=== PATIENT | male | born 1935 | race Caucasian/White ===

== ENCOUNTER → 2016-11-18 | Outpatient (CLI) | payer OTHER ==
[~2016-11-18] MED LIST: AMLO2.5T PO; ASPI-435 PO; ATOR-54 PO; GLC500 PO; LSN/2025 PO; MISCTAB88 PO; MULT-506 PO
--- NOTE | 2016-11-18 10:32 | DIAGNOSTIC IMAGING REPORT ---
KUB HISTORY: N41.1 Chronic [id number] COMPARISON: None. FINDINGS: The bowel gas pattern is unremarkable. There are no dilated loops of small bowel to suggest an obstruction. There is a single 12 mm stone within the lower pole of the right kidney. There are 2 stones within the left kidney with the largest measuring 6 mm. No ureteral calculi. Calcifications in the deep pelvis likely represent phleboliths. No pneumoperitoneum or pneumatosis. IMPRESSION: Bilateral nephrolithiasis as described above. Electronically signed by: Lucho Strong M.D. 11/18/2016 10:31 AM
== END | disposition home or self-care (01) ==
LOC: C.RAD 09:53
PROVIDERS: ATTEND Urology
DX: N41.1 Chronic prostatitis (principal); N20.0 Calculus of kidney

== ENCOUNTER → 2017-01-12 | Outpatient (CLI) | payer OTHER | END | disposition home or self-care (01) | LOC: C.LABSPEC 10:30 | PROVIDERS: ATTEND Urology | DX: R39.198 Other difficulties with micturition (principal); R33.9 Retention of urine, unspecified; N41.1 Chronic prostatitis ==

== ENCOUNTER → 2017-01-21 | Outpatient (CLI) | payer OTHER | END | disposition home or self-care (01) | LOC: C.PATHSPEC 15:08 | PROVIDERS: ATTEND Urology | DX: R97.20 Elevated prostate specific antigen [PSA] (principal) ==

== ENCOUNTER 2017-10-26 21:30 | Inpatient (IN) | payer OTHER ==
[~2017-10-26] VITALS: Ht 185.4 cm; Wt 102.4 kg
[2017-10-27] VITALS (7 sets, daily range): BP systolic 96–117; BP diastolic 53–68; PULSE 99–114; TEMP 36.7–37.4; O2SAT 90–95; Ht 185.4 cm; Wt 102.4 kg
[2017-10-27] MEDS ORDERED: MAGNESIUM HYDROXIDE SUSP 30 ML UDC PO PRN (00:45)
[2017-10-27] MEDS ORDERED: NITROGLYCERIN 0.4 MG SL PER TAB CHARGE SL PRN (00:45)
[2017-10-27] MEDS ORDERED: ONDANSETRON INJ 2 MG/ML 2 ML VIAL IV PRN (00:45)
[2017-10-27] MEDS ORDERED: MoRPHine SULFATE 2 MG/ML CARP IV PRN (00:45)
[2017-10-27] MEDS ORDERED: ACETAMINOPHEN 325 MG TAB PO PRN (00:45)
[2017-10-27] MEDS ORDERED: ALUMINUM/MAGNESIUM/SIMETH (MAALOX MAX) 30 ML UDC PO PRN (00:45)
--- NOTE | 2017-10-27 01:01 | History and Physical ---
History & Physical Date & Time of Service: Oct 27, 2017 at 00:57 Chief Complaint: Urosepsis Primary Care Physician: Valdo Coles M.D. History of Present Illness Source: patient, clinic records, hospital records This is an 82 yo m with a h/o enlarged prostate requiring self cath, HTN, DMII that is presenting to us as a direct admission from [facility] for sepsis/ tachy. The patient came to the ED after having increasing lethargy/ weakness with cloudy urine. He was found to be tachycardic and Adenosine 6 mg was administered without improvement and then 12 mg which showed NSR with RBBB so no further intervention was given for tachycardia. He was given Rocephin 1 G for abnormal UA concerning for UTI as well as 2500 cc NSS bolus as Lactate was 8 on draw in their ED and 2.4 on redraw. The patient was tachycardic through the transfer however the patient has significant improvement in his symptoms. Continues to complain of some mild suprapubic pain which is non radiating and currently a 3/10. The patient denies any chest pain, SOB, fever/ chills, N&V at this time. Does take Trimethoprim 100 mg daily for UTI prophylaxis. Has an appointment with a Urologist in [facility] Past Medical/Surgical History HTN DMII Hyperlipid Enlarged prostate Family History No pertinent family history Social History Smoking Status: Never Smoker Smokeless Tobacco Use: No Alcohol Use: none Drug Use: none Marital Status: Housing status: lives with family Immunizations History of Influenza Vaccine: Unknown History of Tetanus Vaccine?: Unknown History of Pneumococcal: Unknown History of Hepatitis B Vaccine: Unknown Multi-Drug Resistant Organisms History of MDRO: No Allergies Coded Allergies: Iodinated Diagnostic Agents (Verified Allergy, Unknown, HIVE, 09/01/15) Home Medications Scheduled Amlodipine (Norvasc), 2.5 MG PO QAM Aspirin (Aspirin 81), 81 MG PO HS Atorvastatin (Lipitor), 20 MG PO HS Dutasteride (Avodart), 0.5 MG PO DAILY Hctz/Lisinopril (Lisinopril/Hctz 20/25 Mg), 1 TAB PO QAM Metformin HCl (Metformin HCl), 500 MG PO BID Misc Natural Products (Osteo Bi-Flex Triple Stre), 1 TAB PO BID Multivitamin (Multivitamin), 1 TAB PO QAM Miscellaneous Medications Cranberry (Vaccinium Macrocarp (Cranberry Fruit Concentra) Trimethoprim (Proloprim), 100 MG PO Review of Systems Constitutional: No fever, No chills, No sweats Eyes: No worsening of vision Respiratory: No cough, No sputum, No wheezing, No shortness of breath, No dyspnea on exertion, No dyspnea at rest Cardiovascular: No chest pain Abdomen: + pain, No nausea, No vomiting, No diarrhea, No constipation Musculoskeletal: No joint pain, No muscle pain Genitourinary - Male: + urinary retention, + problem reported (self cath ) Neurologic: No weakness, No balance problems Endocrine: No fatigue Hematologic / Lymphatic: No abnormal bleeding/bruising Integumentary: No rash Physical Exam Vital Signs Date Time Temp Pulse Resp B/P (MAP) Pulse Ox O2 Delivery O2 Flow Rate FiO2 10/27/17 00:03 36.9 107 19 117/68 General Appearance: no apparent distress Head: normocephalic, atraumatic Eyes: normal inspection ENT: normal ENT inspection Neck: supple Respiratory/Chest: normal breath sounds, no respiratory distress, no accessory muscle use Cardiovascular: no murmur, normal peripheral pulses, + tachycardia Abdomen/GI: normal bowel sounds, soft, + tenderness (suprapubic without rebound ) Back: normal inspection Extremities/Musculoskelatal: normal inspection, no calf tenderness, no pedal edema, normal range of motion Neurologic/Psych: alert, normal mood/affect, oriented x 3 Skin: normal color, warm/dry, no rash Lymphatic: no adenopathy Diagnostics Laboratory Results Results Past 24 Hours Test 10/27/17 00:38 Range/Units Diagnostic Radiology Apparent bilat pyelonephritis noted on the [facility] abd CT however no read was sent with documentation, will upload for assessment EKG HR 153 sinus tachy with RBBB no ectopy Impression Assessment and Plan This is an 82 yo m with a history of enlarged prostate and recurrent UTI after initiating self cath in February suffering from sepsis secondary to a urinary source Sepsis secondary to UTI/ pyelo in the presence of an enlarged prostate - Tele admission - NSS @ 125cc/h - Repeat labs from [facility] including CBC, CMP, lactate, magnesium, procal - Repeat UA and request culture results via HIM - Zosyn cont'd - Continue Dutasteride 0.5 mg daily - consider consult to ID for rec for prophylaxis DMII Metofrmin 500 mg bid held - insulin ISS with BSG ACHS HTN/ HLD - continue Amlodipine 2.5 mg - lisinopril HCTZ 20/25 held until recheck of Cr as patient had KYARA at [facility] according to documentation DVT prophylaxis - SCD Heparin bid Attending addendum: I have physically seen this patient, have supervised the medical residents activities, and agree with the H&P unless as otherwise noted. Assessment and Plan: UTI/sepsis/BPH with BA-- Zosyn IV NSS at 125 mls/hr Continue dutasteride Follow urine culture and sensitivity Consult urology, has been seen by Dr. Gutierrez in the past. Diabetes mellitus-- Hold metformin Place on Accu-Cheks before meals and at bedtime with NovoLog coverage per scale. Hypertension-- Continue amlodipine. Hold lisinopril/HCTZ Repeat BMP and magnesium levels Level of Care Telemetry Advanced Directives Existing Advance Directive: No Existing Living Will: No Existing Power of Cad Design Engineer: No Resuscitation Status FULL RESUSCITATION VTE Prophylaxis VTE Risk Assessment Done? Y/N: Yes Risk Level: Moderate Given or contraindicated: Unfractionated heparin SQ, SCD's Social Service Consult None Apply Note Total Time: Critical Care 30 - 74 minutes Additional Copies To Valdo Coles M.D.
[2017-10-27] MEDS: SODIUM CHLORIDE 0.9% 1000ML 1,000 ML IV SCH ×3 (01:05→17:13)
[2017-10-27 01:25] LABS: INR 1.2 (0.9-1.1); PARTIAL THROMBOPLASTIN RATIO 1.1; PROTHROMBIN TIME (PATIENT) 12.1 SECONDS (9.0-12.0)
[2017-10-27] MEDS ORDERED: DUTA0.5C PO (01:29)
[2017-10-27] MEDS ORDERED: CRAN1CAP8 (01:29)
[2017-10-27] MEDS ORDERED: TRIM100T PO (01:29)
[2017-10-27 01:34] LABS: BUN/CREATININE RATIO 16.1 (10-20); CALCIUM 7.6 mg/dl (8.5-10.1); CREATININE 2.34 mg/dl (0.60-1.40); MAGNESIUM 1.3 mg/dl (1.8-2.4); POTASSIUM 3.9 mmol/L (3.5-5.1)
[2017-10-27 01:42] LABS: ALB/GLOB RATIO 0.8 (0.9-2)
[2017-10-27] MEDS ORDERED: PIPERACILL/TAZOBAC IV 3.375 GM in DEXTROSE 5% 100ML IV ONE (01:45)
[2017-10-27 01:56] LABS: HEMATOCRIT 32.9 % (42-52); MEAN CELL VOLUME 89.6 fL (80-100); MEAN CORPUSCULAR HEMOGLOBIN 29.2 pg (25-34); MEAN CORPUSCULAR HGB CONC 32.5 g/dl (32-36); MEAN PLATELET VOLUME 9.1 fL (7.4-10.4); PLATELET COUNT 205 K/uL (130-400); RED BLOOD COUNT 3.67 M/uL (4.7-6.1); WHITE BLOOD COUNT 29.98 K/uL (4.8-10.8)
[2017-10-27 01:57] LABS: COMPLETE YES; ECHINOCYTES 1+; LYMPH ABS # 0.27 K/uL (1.2-3.4); LYMPHOCYTE % 0.9 %; META ABS # 3.63 K/uL (0-0); METAMYELOCYTE % 12.1 %; MYELOCYTE % 2.6 %; NEUTROPHILS % 84.4 %; VACUOLIZATION 1+
[2017-10-27] MEDS ORDERED: PIPERACILL/TAZOBAC CONSULT ACTIVE PRN (02:00)
[2017-10-27 02:16] LABS: URINE APPEARANCE TURBID (CLEAR); URINE COLOR DK YELLOW; URINE EPITHELIAL CELL AUTO >30 /lpf (0-5); URINE NITRITE POS (NEG); UROBILINOGEN NEG (NEG); ZZURINE CULT IF INDIC CATH YES
[2017-10-27 02:29] LABS: MANUAL MICROSCOPIC REQUIRED? NO; REVIEW REQ? YES; URINE BILIRUBIN 1+ (NEG)
[2017-10-27] MEDS: PIPERACILL/TAZOBAC IV 3.375 GM in DEXTROSE 5% 100ML 100 ML IV SCH ×3 (05:36→22:06)
[2017-10-27 06:59] LABS: BUN/CREATININE RATIO 16.6 (10-20); CALCIUM 7.7 mg/dl (8.5-10.1); CREATININE 2.42 mg/dl (0.60-1.40); HEMATOCRIT 32.6 % (42-52); MEAN CELL VOLUME 89.8 fL (80-100); MEAN CORPUSCULAR HEMOGLOBIN 29.2 pg (25-34); MEAN CORPUSCULAR HGB CONC 32.5 g/dl (32-36); MEAN PLATELET VOLUME 9.6 fL (7.4-10.4); PLATELET COUNT 215 K/uL (130-400); POTASSIUM 4.7 mmol/L (3.5-5.1); RED BLOOD COUNT 3.63 M/uL (4.7-6.1); WHITE BLOOD COUNT 40.18 K/uL (4.8-10.8)
[2017-10-27 07:00] LABS: BASO % 0.1 %; BASO ABS # 0.05 K/uL (0-0.2); COMPLETE YES; ECHINOCYTES 1+; IG% 1.3 %; LYMPH % 1.5 %; LYMPH ABS # 0.61 K/uL (1.2-3.4); MONO % 3.5 %; NEUT % 93.6 %
[2017-10-27] MEDS: MULTIVITAMIN TAB PO SCH (07:40)
[2017-10-27] MEDS: AMLODIPINE BESYLATE 5 MG TAB PO SCH (07:40)
[2017-10-27] MEDS: HEPARIN SOD 5000 UNIT/0.5 ML CARP SQ SCH ×2 (07:42→22:08)
[2017-10-27] MEDS: INSULIN ASPART 100 UNITS/ML 3 ML PEN SC SCH ×4 (07:42→21:00)
--- NOTE | 2017-10-27 07:59 | DIAGNOSTIC IMAGING REPORT ---
CHEST ONE VIEW PORTABLE CLINICAL HISTORY: 82 years-old Male presenting with sepsis. TECHNIQUE: Portable upright AP view of the chest was obtained. COMPARISON: None. FINDINGS: Atherosclerosis of aortic arch. Cardiac silhouette mildly enlarged allowing for AP technique. Elevation of the right hemidiaphragm with minimal right basilar opacity. Lungs and pleural spaces otherwise clear. Skin folds noted over the right lateral lung base. No convincing evidence of pneumothorax. Degenerative changes of the right glenohumeral joint. Upper abdomen normal. IMPRESSION: 1. Mild cardiomegaly. 2. Elevation of the right hemidiaphragm with right basilar atelectasis. No other convincing evidence of acute cardiopulmonary disease. Electronically signed by: Maksim Castillo M.D. 10/27/2017 7:57 AM Dictated Date/Time: 10/27/2017 7:56 AM
[2017-10-27] MEDS ORDERED: AVODART~ORDER AWAITING ACTION SCH (08:00)
[2017-10-27] MEDS ORDERED: NON-FORMULARY MEDICATION (Misc Natural Products (Osteo Bi-Flex Triple Stre) 1 TAB) PO SCH (09:00)
[2017-10-27] MEDS ORDERED: LISINOPRIL/HCTZ 20/25MG TAB PO SCH (09:00)
[2017-10-27] MEDS ORDERED: HydrALAZINE HCL 20 MG/ML VIAL IV. PRN (10:15)
[2017-10-27] MEDS: MAGNESIUM SULFATE 1GM / D5W 1 GM in PREMIXED IN D5W 100 ML IV SCH ×2 (10:55→12:05)
--- NOTE | 2017-10-27 11:02 | Medical Student: [facility] ---
Med Student Progress Note Date of Service Oct 27, 2017. Subjective Pt evaluation today including: conversation w/ patient, physical exam, chart review, lab review, review of studies, review of inpatient medication list Voiding: vasquez catheter in place 82 year old male with a history of BPH requiring self-catheterizations presenting to outside ED on 10/26 with one day history of fatigue, cloudy urine , and weakness. He was seen by his PCP earlier in the day and diagnosed with a UTI and given an unknown antibiotic which he took once. Symptoms continued to worsen leading to him calling an ambulance. He takes daily trimethoprim 100mg for UTI prophylaxis. He was tachycardic on arrival and given adenosine which caused NSR. He recieved fluid bolus, and IM Rocephin 1g. U/A showed obvious UTI. Chest x-ray was unremarkable. EKG showed NSR with RBBB. His lactate was 8 initially, but trended downward to 2.4. A CT at outside ED showed bilateral pyelonephritis. His troponin was elevated to 0.079 last night and trended down slightly to 0.074. Creatinine is 2.42 with a know previous creatinine of 1.8 last year. Today he says that he feels much better, and his weakness and fatigue have been resolving. He continues to have mild suprapubic pain. Urine is dark likely from Pyridium. He admitted to having dysuria and polyuria over the last few days. He has been started on IV Zosyn here. Review of Systems Constitutional: + chills, + sweats, + weakness, + fatigue, No fever ENT: + nasal symptoms Respiratory: + cough, No sputum, No wheezing, No shortness of breath Cardiac: No chest pain, No orthopnea, No edema Abdomen: + pain, No nausea, No vomiting, No diarrhea Male : + dysuria, + urinary frequency, + nocturia more than once/night, + hematuria All Other Systems: Reviewed and Negative Objective Vital Signs Date Time Temp Pulse Resp B/P (MAP) Pulse Ox O2 Delivery O2 Flow Rate FiO2 10/27/17 08:00 Room Air 10/27/17 07:30 37.2 114 20 109/61 (77) 93 Room Air 10/27/17 04:15 Nasal Cannula 2.0 10/27/17 03:27 36.9 99 20 96/53 (67) 95 Nasal Cannula 3.0 10/27/17 00:03 36.9 107 19 117/68 94 Room Air 10/27/17 00:00 Nasal Cannula 2.0 Physical Exam General Appearance: WD/WN, no apparent distress Eyes: bilateral eyes normal inspection, bilateral eyes EOMI ENT: hearing grossly normal, pharynx normal Neck: supple, no JVD, + pertinent finding (Erythema and flushing) Respiratory/Chest: chest non-tender, lungs clear, normal breath sounds, no respiratory distress, no accessory muscle use Cardiovascular: regular rate, rhythm, no edema, no gallop, no JVD, no murmur Abdomen: normal bowel sounds, soft, no organomegaly, no pulsatile mass, + tenderness (mi9ld suprapubic tenderness without guarding) Extremities: non-tender, normal inspection, no pedal edema, no calf tenderness Neurologic/Psychiatric: alert, normal mood/affect, oriented x 3 Skin: normal color, warm/dry, no rash Laboratory Results Last 24 Hours Test 10/27/17 00:00 10/27/17 01:02 10/27/17 05:58 10/27/17 07:38 Urine Color DK YELLOW Urine Appearance TURBID Urine pH 5.0 Urine Specific [place] 1.020 Urine Protein 3+ Urine Glucose (UA) NEG Urine Ketones NEG Urine Occult Blood 3+ Urine Nitrite POS Urine Bilirubin 1+ Urine Urobilinogen NEG Urine Leukocyte Esterase LARGE Urine WBC (Auto) >30 /hpf Urine RBC (Auto) >30 /hpf Urine Hyaline Casts (Auto) 0 /lpf Urine Epithelial Cells (Auto) >30 /lpf Urine Bacteria (Auto) NEG Urine Pathogenic Casts /lpf Urine Yeast (Auto) . White Blood Count 29.98 K/uL 40.18 K/uL Red Blood Count 3.67 M/uL 3.63 M/uL Hemoglobin 10.7 g/dL 10.6 g/dL Hematocrit 32.9 % 32.6 % Mean Corpuscular Volume 89.6 fL 89.8 fL Mean Corpuscular Hemoglobin 29.2 pg 29.2 pg Mean Corpuscular Hemoglobin Concent 32.5 g/dl 32.5 g/dl Platelet Count 205 K/uL 215 K/uL Mean Platelet Volume 9.1 fL 9.6 fL RDW Standard Deviation 49.5 fL 50.7 fL RDW Coefficient of Variation 15.2 % 15.4 % Nucleated RBC Absolute Count (auto) 0.03 K/uL Neutrophils % (Manual) 84.4 % Lymphocytes % (Manual) 0.9 % Metamyelocytes % 12.1 % Myelocytes % 2.6 % Nucleated Red Blood Cells % 0.1 % Neutrophils # (Manual) 25.30 K/uL Total Absolute Neutrophils 25.30 K/uL Lymphocytes # (Manual) 0.27 K/uL Total Absolute Lymphocytes 0.27 K/uL Metamyelocytes # 3.63 K/uL Myelocytes # 0.78 K/uL Toxic Vacuolation 1+ Echinocytes 1+ 1+ Prothrombin Time 12.1 SECONDS Prothromb Time International Ratio 1.2 Activated Partial Thromboplast Time 27.8 SECONDS Partial Thromboplastin Ratio 1.1 Sodium Level 138 mmol/L 137 mmol/L Potassium Level 3.9 mmol/L 4.7 mmol/L Chloride Level 110 mmol/L 109 mmol/L Carbon Dioxide Level 21 mmol/L 19 mmol/L Anion Gap 7.0 mmol/L 9.0 mmol/L Blood Urea Nitrogen 38 mg/dl 40 mg/dl Creatinine 2.34 mg/dl 2.42 mg/dl Est Creatinine Clear Calc Drug Dose 31.1 ml/min 30.1 ml/min Estimated GFR () 29.3 28.2 Estimated GFR (Non- 25.3 24.3 BUN/Creatinine Ratio 16.1 16.6 Random Glucose 143 mg/dl 172 mg/dl Lactic Acid Level 2.8 mmol/L 2.5 mmol/L Calcium Level 7.6 mg/dl 7.7 mg/dl Magnesium Level 1.3 mg/dl Total Bilirubin 0.4 mg/dl Aspartate Amino Transf (AST/SGOT) 88 U/L Alanine Aminotransferase (ALT/SGPT) 41 U/L Alkaline Phosphatase 56 U/L Troponin I 0.079 ng/ml 0.074 ng/ml Total Protein 5.8 gm/dl Albumin 2.6 gm/dl Globulin 3.2 gm/dl Albumin/Globulin Ratio 0.8 Procalcitonin 198.34 ng/ml Neutrophils (%) (Auto) 93.6 % Lymphocytes (%) (Auto) 1.5 % Monocytes (%) (Auto) 3.5 % Eosinophils (%) (Auto) 0.0 % Basophils (%) (Auto) 0.1 % Neutrophils # (Auto) 37.59 K/uL Lymphocytes # (Auto) 0.61 K/uL Monocytes # (Auto) 1.41 K/uL Eosinophils # (Auto) 0.00 K/uL Basophils # (Auto) 0.05 K/uL Immature Granulocyte % (Auto) 1.3 % Immature Granulocyte # (Auto) 0.52 K/uL Bedside Glucose 186 mg/dl Medications Current Inpatient Medications Medications (Trade) Dose Ordered Sig/Ambrose Route Start Time Stop Time Status Last Admin Dose Admin Heparin Sodium (Porcine) (Heparin Sq 5000 Unit/0.5ml) 5,000 unit Q12 SQ 10/27/17 09:00 11/26/17 08:59 10/27/17 07:42 5,000 UNIT Sodium Chloride 1,000 ml @ 125 mls/hr Q8H IV 10/27/17 01:30 11/26/17 01:29 10/27/17 09:05 125 MLS/HR Acetaminophen (Tylenol Tab) 650 mg Q4H PRN PO 10/27/17 00:45 11/26/17 00:44 Al Hydrox/Mg Hydrox/Simethicone (Maalox Max Susp) 15 ml Q4H PRN PO 10/27/17 00:45 11/26/17 00:44 Magnesium Hydroxide (Milk Of Magnesia Susp) 30 ml Q12H PRN PO 10/27/17 00:45 11/26/17 00:44 Ondansetron HCl (Zofran Inj) 4 mg Q6H PRN IV 10/27/17 00:45 11/26/17 00:44 Nitroglycerin (Nitrostat Tab) 0.4 mg UD PRN SL 10/27/17 00:45 11/26/17 00:44 Morphine Sulfate (MoRPHine SULFATE INJ) 2 mg Q30M PRN IV 10/27/17 00:45 11/10/17 00:44 Metoprolol Tartrate (Lopressor Iv) 5 mg Q6 PRN IV 10/27/17 00:45 11/26/17 00:44 Amlodipine Besylate (Norvasc Tab) 2.5 mg QAM PO 10/27/17 09:00 11/26/17 08:59 10/27/17 07:40 2.5 MG Aspirin (Ecotrin Tab) 81 mg HS PO 10/27/17 21:00 1/13/18 20:59 Atorvastatin Calcium (Lipitor Tab) 20 mg HS PO 10/27/17 21:00 11/26/17 20:59 HCTZ/Lisinopril (Prinzide 20-25MG Tab) 1 tab QAM PO 10/27/17 09:00 11/26/17 08:59 10/27/17 07:40 1 TAB Multivitamins (Multivitamin Tab) 1 tab QAM PO 10/27/17 09:00 11/26/17 08:59 10/27/17 07:40 1 TAB Miscellaneous Information (Order Awaiting Action) 1 ea QS N/A 10/27/17 08:00 11/26/17 07:59 Piperacillin Sod/ Tazobactam Sod 3.375 gm/Dextrose 115 ml @ 28.75 mls/ hr Q8H IV 10/27/17 06:00 11/06/17 05:59 10/27/17 05:36 28.75 MLS/HR Insulin Aspart (novoLOG ASPART) SLIDING SCALE G... ACHS SC 10/27/17 07:00 11/26/17 06:59 10/27/17 07:42 2 UNITS Piperacillin Sod/ Tazobactam Sod (Consult) 1 ea UD PRN N/A 10/27/17 02:00 11/26/17 01:59 Assessment and Plan Assessment and Plan: Problem List: 1. UTI 2. Pyelonephritis 3. Sepsis 4. BPH 5. T2DM 6. HTN 7. Elevated creatinine 8. Elevated troponin Assessment: 82 year old male with BPH requiring self-catheterization presenting with urosepsis. He is now hemodynamically stable and improving weakness. Plan: 1. Urosepsis: Grossly positive U/A and pyelonephritis on CT. WBC of 40. Lactate has trended downward, mildly tachycardic, afebrile. Day 1 of 3.375gm IV Zosyn q8h. Symptoms of polyuria and dysuria improving. On telemetry. 2. T2DM: Well controlled BG, check q4h. SSI. 3. HTN: Well controlled BP, continue home Norvasc 2.5mg daily. 4. DVT prophylaxis: Heparin 5000 units SQ q12h 5. Elevated troponin: Trending downward, likely from demand ischemia. EKG shows no acute changes. 6. Elevated creatinine: likely due to renal involvement of UTI, continue to monitor BMP q12h. Disposition: Will monitor on telemetry, continue IV zosyn, awaiting urine cultures. Continued [facility] stay due to: abnormal vital signs, multiple IV medications needed Discharge planning: uncertain
--- NOTE | 2017-10-27 11:36 | Hospitalist Progress Note ---
Hospitalist Progress Note Date of Service Oct 27, 2017. (Darcie Nye ., THOMASC) Subjective Pt evaluation today including: conversation w/ patient, physical exam, chart review, lab review, review of studies, review of inpatient medication list Voiding: vasquez catheter in place (draining dark pascual urine ) Patient resting in bed. Notes significant improvement in symptoms since admission. Eating and drinking OK. +chills yesterday, denies any today. +diffuse body weakness. Patient denies any fever, sweats, lightheadedness, dizziness, vision changes, CP , palpitations, edema, SOB, wheezing, cough, abdominal pain, nausea, vomiting, diarrhea, melena, numbness/tingling, muscle/joint pain, anxiety/depression, active bleeding, or new skin discoloration/changes. (Darcie Nye ., ENRIQUE-C) Medications Current Inpatient Medications Medications (Trade) Dose Ordered Sig/Ambrose Route Start Time Stop Time Status Last Admin Dose Admin Heparin Sodium (Porcine) (Heparin Sq 5000 Unit/0.5ml) 5,000 unit Q12 SQ 10/27/17 09:00 11/26/17 08:59 10/27/17 07:42 5,000 UNIT Sodium Chloride 1,000 ml @ 125 mls/hr Q8H IV 10/27/17 01:30 11/26/17 01:29 10/27/17 09:05 125 MLS/HR Acetaminophen (Tylenol Tab) 650 mg Q4H PRN PO 10/27/17 00:45 11/26/17 00:44 Al Hydrox/Mg Hydrox/Simethicone (Maalox Max Susp) 15 ml Q4H PRN PO 10/27/17 00:45 11/26/17 00:44 Magnesium Hydroxide (Milk Of Magnesia Susp) 30 ml Q12H PRN PO 10/27/17 00:45 11/26/17 00:44 Ondansetron HCl (Zofran Inj) 4 mg Q6H PRN IV 10/27/17 00:45 11/26/17 00:44 Nitroglycerin (Nitrostat Tab) 0.4 mg UD PRN SL 10/27/17 00:45 11/26/17 00:44 Morphine Sulfate (MoRPHine SULFATE INJ) 2 mg Q30M PRN IV 10/27/17 00:45 11/10/17 00:44 Metoprolol Tartrate (Lopressor Iv) 5 mg Q6 PRN IV 10/27/17 00:45 11/26/17 00:44 Amlodipine Besylate (Norvasc Tab) 2.5 mg QAM PO 10/27/17 09:00 11/26/17 08:59 10/27/17 07:40 2.5 MG Aspirin (Ecotrin Tab) 81 mg HS PO 10/27/17 21:00 11/26/17 20:59 Atorvastatin Calcium (Lipitor Tab) 20 mg HS PO 10/27/17 21:00 11/26/17 20:59 Multivitamins (Multivitamin Tab) 1 tab QAM PO 10/27/17 09:00 11/26/17 08:59 10/27/17 07:40 1 TAB Miscellaneous Information (Order Awaiting Action) 1 ea QS N/A 10/27/17 08:00 11/26/17 07:59 Piperacillin Sod/ Tazobactam Sod 3.375 gm/Dextrose 115 ml @ 28.75 mls/ hr Q8H IV 10/27/17 06:00 11/06/17 05:59 10/27/17 05:36 28.75 MLS/HR Insulin Aspart (novoLOG ASPART) SLIDING SCALE G... ACHS SC 10/27/17 07:00 11/26/17 06:59 10/27/17 07:42 2 UNITS Piperacillin Sod/ Tazobactam Sod (Consult) 1 ea UD PRN N/A 10/27/17 02:00 11/26/17 01:59 Magnesium Sulfate 1 gm/Prmx 100 ml @ 100 mls/hr Q1H IV 10/27/17 10:30 10/27/17 12:29 10/27/17 10:55 100 MLS/HR Hydralazine HCl (HydrALAZINE INJ) 10 mg Q6H PRN IV. 10/27/17 10:15 11/26/17 10:14 (Darcie Nye, EDDIE) Objective Vital Signs Date Time Temp Pulse Resp B/P (MAP) Pulse Ox O2 Delivery O2 Flow Rate FiO2 10/27/17 08:00 Room Air 10/27/17 07:30 37.2 114 20 109/61 (77) 93 Room Air 10/27/17 04:15 Nasal Cannula 2.0 10/27/17 03:27 36.9 99 20 96/53 (67) 95 Nasal Cannula 3.0 10/27/17 00:03 36.9 107 19 117/68 94 Room Air 10/27/17 00:00 Nasal Cannula 2.0 (Darcie Nye ., PA-C) Physical Exam General Appearance: no apparent distress Eyes: normal inspection, PERRL ENT: hearing grossly normal Neck: supple Respiratory/Chest: lungs clear, no respiratory distress, no accessory muscle use Cardiovascular: + tachycardia (regular rhythm ) Abdomen: normal bowel sounds, non tender, soft Extremities: no pedal edema, no calf tenderness Neurologic/Psychiatric: alert, normal mood/affect, oriented x 3 Skin: normal color, warm/dry, no rash (Darcie Nye ., PA-C) Laboratory Results Last 24 Hours Test 10/27/17 00:00 10/27/17 01:02 10/27/17 05:58 10/27/17 07:38 Urine Color DK YELLOW Urine Appearance TURBID Urine pH 5.0 Urine Specific [place] 1.020 Urine Protein 3+ Urine Glucose (UA) NEG Urine Ketones NEG Urine Occult Blood 3+ Urine Nitrite POS Urine Bilirubin 1+ Urine Urobilinogen NEG Urine Leukocyte Esterase LARGE Urine WBC (Auto) >30 /hpf Urine RBC (Auto) >30 /hpf Urine Hyaline Casts (Auto) 0 /lpf Urine Epithelial Cells (Auto) >30 /lpf Urine Bacteria (Auto) NEG Urine Pathogenic Casts /lpf Urine Yeast (Auto) . White Blood Count 29.98 K/uL 40.18 K/uL Red Blood Count 3.67 M/uL 3.63 M/uL Hemoglobin 10.7 g/dL 10.6 g/dL Hematocrit 32.9 % 32.6 % Mean Corpuscular Volume 89.6 fL 89.8 fL Mean Corpuscular Hemoglobin 29.2 pg 29.2 pg Mean Corpuscular Hemoglobin Concent 32.5 g/dl 32.5 g/dl Platelet Count 205 K/uL 215 K/uL Mean Platelet Volume 9.1 fL 9.6 fL RDW Standard Deviation 49.5 fL 50.7 fL RDW Coefficient of Variation 15.2 % 15.4 % Nucleated RBC Absolute Count (auto) 0.03 K/uL Neutrophils % (Manual) 84.4 % Lymphocytes % (Manual) 0.9 % Metamyelocytes % 12.1 % Myelocytes % 2.6 % Nucleated Red Blood Cells % 0.1 % Neutrophils # (Manual) 25.30 K/uL Total Absolute Neutrophils 25.30 K/uL Lymphocytes # (Manual) 0.27 K/uL Total Absolute Lymphocytes 0.27 K/uL Metamyelocytes # 3.63 K/uL Myelocytes # 0.78 K/uL Toxic Vacuolation 1+ Echinocytes 1+ 1+ Prothrombin Time 12.1 SECONDS Prothromb Time International Ratio 1.2 Activated Partial Thromboplast Time 27.8 SECONDS Partial Thromboplastin Ratio 1.1 Sodium Level 138 mmol/L 137 mmol/L Potassium Level 3.9 mmol/L 4.7 mmol/L Chloride Level 110 mmol/L 109 mmol/L Carbon Dioxide Level 21 mmol/L 19 mmol/L Anion Gap 7.0 mmol/L 9.0 mmol/L Blood Urea Nitrogen 38 mg/dl 40 mg/dl Creatinine 2.34 mg/dl 2.42 mg/dl Est Creatinine Clear Calc Drug Dose 31.1 ml/min 30.1 ml/min Estimated GFR () 29.3 28.2 Estimated GFR (Non- 25.3 24.3 BUN/Creatinine Ratio 16.1 16.6 Random Glucose 143 mg/dl 172 mg/dl Lactic Acid Level 2.8 mmol/L 2.5 mmol/L Calcium Level 7.6 mg/dl 7.7 mg/dl Magnesium Level 1.3 mg/dl Total Bilirubin 0.4 mg/dl Aspartate Amino Transf (AST/SGOT) 88 U/L Alanine Aminotransferase (ALT/SGPT) 41 U/L Alkaline Phosphatase 56 U/L Troponin I 0.079 ng/ml 0.074 ng/ml Total Protein 5.8 gm/dl Albumin 2.6 gm/dl Globulin 3.2 gm/dl Albumin/Globulin Ratio 0.8 Procalcitonin 198.34 ng/ml Neutrophils (%) (Auto) 93.6 % Lymphocytes (%) (Auto) 1.5 % Monocytes (%) (Auto) 3.5 % Eosinophils (%) (Auto) 0.0 % Basophils (%) (Auto) 0.1 % Neutrophils # (Auto) 37.59 K/uL Lymphocytes # (Auto) 0.61 K/uL Monocytes # (Auto) 1.41 K/uL Eosinophils # (Auto) 0.00 K/uL Basophils # (Auto) 0.05 K/uL Immature Granulocyte % (Auto) 1.3 % Immature Granulocyte # (Auto) 0.52 K/uL Bedside Glucose 186 mg/dl (Darcie Nye ., PA-C) Assessment and Plan This is an 82 y/o male with a history of enlarged prostate and recurrent UTI after initiating self cath in February suffering from sepsis secondary to a urinary source Sepsis, likely secondary to UTI, h/o BPH: - Admitted to tele for cardiac monitoring - NSS @ 125cc/h - UCx and BCx pending - IV Zosyn - Continue Dutasteride 0.5 mg daily - Follow CBC Hypomagnesium at 1.3: Replace w/ IV 1 gm Mag x2, follow mag level and replace PRN T2DM: - Metformin 500 mg BID held - BSH ACHS and ISS CKD- unsure of baseline Cr: - Per record in 2015, Cr. 1.8k; Cr. 2.42 today from 2.34 yesterday - Hold HCTZ/Lisinopril - Follow PRP HTN: - Continue Amlodipine 2.5 mg - Hold HCTZ/Lisinopril as above - Hydralazine 10 mg IV q6 hrs PRN for sbp >180 or dbp >100 HLD: Lipitor 20 mg HS DVT prophylaxis: Heparin SQ BID Code Status: LEVEL I, FULL Dispo: Discharge uncertain at this time- will consult PT/OT once status improves (Darcie Nye ., PA-C) I agree with PA assessment and plan and have seen and examined pt myself Resting comfortably in bed States he is feeling better VSS Labs reviewed, marked leukocytosis Hx of BPH Cont broad spectrum antibx at this time Lactate improving Mildly elev trops Cont to monitor on tele (Oumar Del Rosario D.O.)
[2017-10-27] MEDS: ASPIRIN 81 MG ECTAB PO SCH (22:06)
[2017-10-27] MEDS: ATORVASTATIN 20 MG TAB PO SCH (22:06)
[2017-10-28] VITALS (9 sets, daily range): BP systolic 99–144; BP diastolic 64–79; PULSE 86–119; TEMP 36.8–37.2; O2SAT 91–93
[2017-10-28] MEDS: SODIUM CHLORIDE 0.9% 1000ML 1,000 ML IV SCH ×4 (05:17→23:27)
[2017-10-28] MEDS: PIPERACILL/TAZOBAC IV 3.375 GM in DEXTROSE 5% 100ML 100 ML IV SCH ×3 (05:37→21:55)
[2017-10-28 06:19] LABS: HEMATOCRIT 31.7 % (42-52); MEAN CORPUSCULAR HEMOGLOBIN 29.2 pg (25-34); MEAN CORPUSCULAR HGB CONC 32.8 g/dl (32-36); MEAN PLATELET VOLUME 9.4 fL (7.4-10.4); PLATELET COUNT 198 K/uL (130-400); RED BLOOD COUNT 3.56 M/uL (4.7-6.1)
[2017-10-28 06:47] LABS: BUN/CREATININE RATIO 20.2 (10-20); CALCIUM 7.5 mg/dl (8.5-10.1); CREATININE 1.63 mg/dl (0.60-1.40); POTASSIUM 4.2 mmol/L (3.5-5.1)
[2017-10-28] MEDS: INSULIN ASPART 100 UNITS/ML 3 ML PEN SC SCH ×4 (07:00→20:39)
[2017-10-28] MEDS: MULTIVITAMIN TAB PO SCH (07:39)
[2017-10-28] MEDS: AMLODIPINE BESYLATE 5 MG TAB PO SCH (07:40)
[2017-10-28] MEDS: DUTASTERIDE 0.5MG PO SCH ×2 (07:41)
[2017-10-28] MEDS: HEPARIN SOD 5000 UNIT/0.5 ML CARP SQ SCH (07:42)
[2017-10-28] MEDS: METOPROLOL TARTRATE 1 MG/ML VIAL IV PRN ×2 (08:06→19:30)
--- NOTE | 2017-10-28 08:47 | Medical Student: [facility] ---
Med Student Progress Note Date of Service Oct 28, 2017. Subjective Pt evaluation today including: conversation w/ patient, physical exam, chart review, lab review, review of studies, review of inpatient medication list Voiding: vasquez catheter in place 82 year old male with a history of BPH requiring self-catheterizations presenting to outside ED on 10/26 with one day history of fatigue, cloudy urine , and weakness. CT at ED showed bilateral pyelonephritis. Diagnosed with urosepsis. Creatinine was 2.42 on arrival, now 1.63 showing improvement of what was likely prerenal KYARA. Today he says that he feels much better, and his weakness and fatigue have been resolving. Did not sleep well through the night. Denies fevers, chills, but has felt hot. He continues to have mild suprapubic pain. Urine is clear. He admitted to having dysuria and polyuria over the last few days, but that has resolved. He has been started on IV Zosyn. Continues to be tachycardic into the 110's. Complains of sinus congestion. Review of Systems Constitutional: + sweats, + weakness, + fatigue, No fever, No chills Respiratory: + cough, No sputum, No wheezing, No shortness of breath Cardiac: No chest pain, No orthopnea, No edema, No palpitations Abdomen: No pain, No nausea, No vomiting, No diarrhea, No constipation Male : No dysuria, No urinary frequency, No incontinence All Other Systems: Reviewed and Negative Objective Vital Signs Date Time Temp Pulse Resp B/P (MAP) Pulse Ox O2 Delivery O2 Flow Rate FiO2 10/28/17 08:06 162 130/70 10/28/17 07:55 37.2 91 16 130/75 (93) 91 Room Air 10/28/17 04:00 Room Air 10/28/17 03:13 36.8 111 18 99/66 (77) 92 Room Air 10/28/17 00:01 Room Air 10/27/17 23:40 36.7 108 18 109/64 (79) 94 Room Air 10/27/17 20:00 Room Air 10/27/17 19:31 36.8 110 20 99/59 (72) 90 Room Air 10/27/17 16:01 37.3 106 18 104/60 (75) 91 Room Air 10/27/17 16:00 Room Air 10/27/17 12:00 Room Air 10/27/17 11:25 37.4 111 20 99/63 (75) 92 Room Air Physical Exam General Appearance: no apparent distress, + obese Eyes: bilateral eyes normal inspection, bilateral eyes EOMI ENT: hearing grossly normal, pharynx normal, + nasal drainage Neck: supple, no JVD Respiratory/Chest: chest non-tender, lungs clear, normal breath sounds, no respiratory distress, no accessory muscle use Cardiovascular: no edema, no gallop, no JVD, no murmur, + tachycardia Abdomen: normal bowel sounds, soft, no organomegaly, no pulsatile mass, + tenderness (mild suprapubic tenderness) Extremities: non-tender, normal inspection, no pedal edema, no calf tenderness Neurologic/Psychiatric: alert, normal mood/affect, oriented x 3 Skin: normal color, no rash, + diaphoresis Laboratory Results Last 24 Hours Test 10/27/17 11:24 10/27/17 16:28 10/27/17 21:08 10/28/17 05:38 Bedside Glucose 176 mg/dl 108 mg/dl 114 mg/dl White Blood Count 34.20 K/uL Red Blood Count 3.56 M/uL Hemoglobin 10.4 g/dL Hematocrit 31.7 % Mean Corpuscular Volume 89.0 fL Mean Corpuscular Hemoglobin 29.2 pg Mean Corpuscular Hemoglobin Concent 32.8 g/dl RDW Standard Deviation 50.7 fL RDW Coefficient of Variation 15.6 % Platelet Count 198 K/uL Mean Platelet Volume 9.4 fL Sodium Level 135 mmol/L Potassium Level 4.2 mmol/L Chloride Level 108 mmol/L Carbon Dioxide Level 21 mmol/L Anion Gap 6.0 mmol/L Blood Urea Nitrogen 33 mg/dl Creatinine 1.63 mg/dl Est Creatinine Clear Calc Drug Dose 44.7 ml/min Estimated GFR () 45.4 Estimated GFR (Non- 39.2 BUN/Creatinine Ratio 20.2 Random Glucose 78 mg/dl Calcium Level 7.5 mg/dl Magnesium Level 2.0 mg/dl Test 10/28/17 06:39 Bedside Glucose 87 mg/dl Medications Current Inpatient Medications Medications (Trade) Dose Ordered Sig/Ambrose Route Start Time Stop Time Status Last Admin Dose Admin Heparin Sodium (Porcine) (Heparin Sq 5000 Unit/0.5ml) 5,000 unit Q12 SQ 10/27/17 09:00 11/26/17 08:59 10/28/17 07:42 5,000 UNIT Sodium Chloride 1,000 ml @ 125 mls/hr Q8H IV 10/27/17 01:30 11/26/17 01:29 10/28/17 07:43 125 MLS/HR Acetaminophen (Tylenol Tab) 650 mg Q4H PRN PO 10/27/17 00:45 11/26/17 00:44 Al Hydrox/Mg Hydrox/Simethicone (Maalox Max Susp) 15 ml Q4H PRN PO 10/27/17 00:45 11/26/17 00:44 Magnesium Hydroxide (Milk Of Magnesia Susp) 30 ml Q12H PRN PO 10/27/17 00:45 11/26/17 00:44 Ondansetron HCl (Zofran Inj) 4 mg Q6H PRN IV 10/27/17 00:45 11/26/17 00:44 Nitroglycerin (Nitrostat Tab) 0.4 mg UD PRN SL 10/27/17 00:45 11/26/17 00:44 Morphine Sulfate (MoRPHine SULFATE INJ) 2 mg Q30M PRN IV 10/27/17 00:45 11/10/17 00:44 Metoprolol Tartrate (Lopressor Iv) 5 mg Q6 PRN IV 10/27/17 00:45 11/26/17 00:44 10/28/17 08:06 5 MG Amlodipine Besylate (Norvasc Tab) 2.5 mg QAM PO 10/27/17 09:00 11/26/17 08:59 10/28/17 07:40 2.5 MG Aspirin (Ecotrin Tab) 81 mg HS PO 10/27/17 21:00 11/26/17 20:59 10/27/17 22:06 81 MG Atorvastatin Calcium (Lipitor Tab) 20 mg HS PO 10/27/17 21:00 11/26/17 20:59 10/27/17 22:06 20 MG Multivitamins (Multivitamin Tab) 1 tab QAM PO 10/27/17 09:00 11/26/17 08:59 10/28/17 07:39 1 TAB Piperacillin Sod/ Tazobactam Sod 3.375 gm/Dextrose 115 ml @ 28.75 mls/ hr Q8H IV 10/27/17 06:00 11/06/17 05:59 10/28/17 05:37 28.75 MLS/HR Insulin Aspart (novoLOG ASPART) SLIDING SCALE G... ACHS SC 10/27/17 07:00 11/26/17 06:59 10/27/17 12:06 1 UNITS Piperacillin Sod/ Tazobactam Sod (Consult) 1 ea UD PRN N/A 10/27/17 02:00 11/26/17 01:59 Hydralazine HCl (HydrALAZINE INJ) 10 mg Q6H PRN IV. 10/27/17 10:15 11/26/17 10:14 Dutasteride (Avodart) 0.5 mg DAILY PO 10/28/17 09:00 11/27/17 08:59 10/28/17 07:41 0.5 MG Assessment and Plan Assessment and Plan: Problem List: 1. UTI 2. Pyelonephritis 3. Sepsis 4. BPH 5. T2DM 6. HTN 7. Elevated creatinine 8. Elevated troponin Assessment: 82 year old male with BPH requiring self-catheterization presenting with urosepsis. He is now hemodynamically stable and improving weakness. Plan: 1. Urosepsis: Grossly positive U/A and pyelonephritis on CT. WBC of 34, improved slightly. Lactate has trended downward, mildly tachycardic, afebrile. Day 2 of 3.375gm IV Zosyn q8h. Symptoms of polyuria and dysuria improving. On telemetry. Check CBC q24. NSS 1000mL q8hr. 2. T2DM: Well controlled BG, check q4h. SSI. 3. HTN: Well controlled BP, 99/66, continue home Norvasc 2.5mg daily. Hold home HCTZ/Lisinopril due to renal function and normotension. 4. DVT prophylaxis: Heparin 5000 units SQ q12h 5. Elevated troponin: Trending downward, likely from demand ischemia. EKG shows no acute changes. 6. Elevated creatinine: likely due to renal involvement of UTI, improved from 2.3 to 1.6 over the last day while receiving IV fluids. Continue to monitor BMP q12h. 7. Sinus congestion: will give guaifenesin, and nasal saline. Disposition: Will monitor on telemetry, continue IV zosyn, awaiting urine cultures. Continued [facility] stay due to: abnormal vital signs, multiple IV medications needed Discharge planning: uncertain
[2017-10-28] MEDS ORDERED: METOPROLOL TARTRATE 1 MG/ML VIAL IV ONE (09:30)
--- NOTE | 2017-10-28 09:48 | Clinical Documentation Query ---
CLINICAL DOCUMENTATION QUERY QUERY 1 OF 2 In your clinical opinion is this patient being managed for: ( X ) Chronic kidney disease, stage 3 - 4 ( ) Not Agree ( ) Other explanation of clinical findings (Please Explain) ( ) Unable to determine (Please Define) ( ) Need to Discuss The medical record reflects the following clinical findings, treatment, and risk factors. Clinical Indicators: GFR range 24.3 to 39.2 from baseline of 35.0 on 11/02/2016 Treatment: IV hydration, telemetry, serial PRPs Risk Factors: HTN, sepsis, UTI, HTN, DM QUERY 2 OF 2 An 82 yo m with a history of enlarged prostate and recurrent UTI after initiating self cath in February suffering from sepsis secondary to a urinary source. In your clinical opinion is this patient being managed for: (X ) Acute kidney failure ( ) Not Agree ( ) Other explanation of clinical findings (Please Explain) ( ) Unable to determine (Please Define) ( ) Need to Discuss The medical record reflects the following clinical findings, treatment, and risk factors. Clinical Indicators: Creatinine 2.34 from baseline 1.80 on 11/02/2016 Treatment: IV hydration, telemetry, serial PRPs Risk Factors: Age, sepsis, UTI, HTN, CKD, DM Please clarify and document your clinical opinion in the progress notes and discharge summary. Terms such as "probable", "suspected", "likely", "questionable", "possible", or "still to be ruled out" are acceptable. IF IN AGREEMENT, YOU MUST DOCUMENT ABOVE DIAGNOSTIC STATEMENT IN DAILY PROGRESS NOTES AND DISCHARGE SUMMARY. This document is not part of the patient's record. Thank You, Rosita Sanchez RN [phone]
--- NOTE | 2017-10-28 11:49 | Cardiology Consultation ---
Cardiology Consultation Date of Consultation: Oct 28, 2017. Requesting Physician: Darcie Nye PA-C Attending Physician: Dr. El Reason for Consultation: New onset atrial fibrillation with RVR Pt evaluation today including: conversation w/ patient, conversation w/ family , physical exam, chart review, lab review, review of studies, review of inpatient medication list, conversation w/ attending History of Present Illness Mr. Shaikh is an 82-year-old male with a past medical history significant for hypertension, dyslipidemia, type 2 diabetes mellitus, and BPH requiring self catheterization who is being seen in consultation regarding now onset atrial fibrillation with RVR. The patient reports that he was seen in his PCP's office on Tuesday morning and was diagnosed with a UTI at that time. Later that day, he developed chills, weakness, and confusion. He presented to the ED at [facility] and was diagnosed with urosepsis. He was tachycardic on arrival and was reportedly given Adenosine 6 mg followed by 12 mg. He was subsequently transferred to [facility] due to the urosepsis and tachycardia. EKG on arrival showed sinus tachycardia at 104 bpm. He was placed on telemetry monitoring and was in sinus tachycardia with short runs of junctional tachycardia overnight. This morning at about 7: 33 am, he developed new onset atrial fibrillation with RVR up to the 180s. He has been treated with 2 doses IV lopressor 5 mg, and his rate is currently averaging 120-130s. He is currently being seen in his room at 235. He reports that he is asymptomatic with the arrhythmia. He denies palpitations, chest pain, shortness of breath, lightheadedness, or presyncope. He denies orthopnea, PND, or edema. He notes occasional blood in his urine due to trauma from the self- catheterization, but he denies any hematuria currently. He denies melena or hematochezia. He denies nausea, vomiting, diarrhea, or abdominal pain. He admits to a cough with some yellow phlegm production. He denies wheezing. He denies neurologic symptoms. Review of systems: As noted in HPI. All other 10 point ROS reviewed and otherwise negative. Past Medical/Surgical History Surgical history: 1. S/P Cataract surgery 2. S/P Vasectomy 3. S/P Cyst removal Family History No pertinent family history His father was diagnosed with CAD in his 40s. His mother was diagnosed with CAD in her mid 60s. Social History Smoking Status: Never Smoker History of Alcohol Use: No He is . He has 2 children and 5 grandchildren. He was never a smoker. He denies alcohol or illicit drug use. Review of Systems Respiratory: + cough, No sputum, No wheezing, No shortness of breath Cardiac: No chest pain, No orthopnea, No edema, No palpitations Allergies Coded Allergies: Iodinated Diagnostic Agents (Verified Allergy, Unknown, HIVE, 09/01/15) Medications Current Inpatient Medications Medications (Trade) Dose Ordered Sig/Ambrose Route Start Time Stop Time Status Last Admin Dose Admin Heparin Sodium (Porcine) (Heparin Sq 5000 Unit/0.5ml) 5,000 unit Q12 SQ 10/27/17 09:00 11/26/17 08:59 10/28/17 07:42 5,000 UNIT Sodium Chloride 1,000 ml @ 125 mls/hr Q8H IV 10/27/17 01:30 11/26/17 01:29 10/28/17 07:43 125 MLS/HR Acetaminophen (Tylenol Tab) 650 mg Q4H PRN PO 10/27/17 00:45 11/26/17 00:44 Al Hydrox/Mg Hydrox/Simethicone (Maalox Max Susp) 15 ml Q4H PRN PO 10/27/17 00:45 11/26/17 00:44 Magnesium Hydroxide (Milk Of Magnesia Susp) 30 ml Q12H PRN PO 10/27/17 00:45 11/26/17 00:44 Ondansetron HCl (Zofran Inj) 4 mg Q6H PRN IV 10/27/17 00:45 11/26/17 00:44 Nitroglycerin (Nitrostat Tab) 0.4 mg UD PRN SL 10/27/17 00:45 11/26/17 00:44 Morphine Sulfate (MoRPHine SULFATE INJ) 2 mg Q30M PRN IV 10/27/17 00:45 11/10/17 00:44 Metoprolol Tartrate (Lopressor Iv) 5 mg Q6 PRN IV 10/27/17 00:45 11/26/17 00:44 10/28/17 08:06 5 MG Amlodipine Besylate (Norvasc Tab) 2.5 mg QAM PO 10/27/17 09:00 11/26/17 08:59 Future Hold 10/28/17 07:40 2.5 MG Aspirin (Ecotrin Tab) 81 mg HS PO 10/27/17 21:00 11/26/17 20:59 10/27/17 22:06 81 MG Atorvastatin Calcium (Lipitor Tab) 20 mg HS PO 10/27/17 21:00 11/26/17 20:59 10/27/17 22:06 20 MG Multivitamins (Multivitamin Tab) 1 tab QAM PO 10/27/17 09:00 11/26/17 08:59 10/28/17 07:39 1 TAB Piperacillin Sod/ Tazobactam Sod 3.375 gm/Dextrose 115 ml @ 28.75 mls/ hr Q8H IV 10/27/17 06:00 11/06/17 05:59 10/28/17 05:37 28.75 MLS/HR Insulin Aspart (novoLOG ASPART) SLIDING SCALE G... ACHS SC 10/27/17 07:00 11/26/17 06:59 10/27/17 12:06 1 UNITS Piperacillin Sod/ Tazobactam Sod (Consult) 1 ea UD PRN N/A 10/27/17 02:00 11/26/17 01:59 Hydralazine HCl (HydrALAZINE INJ) 10 mg Q6H PRN IV. 10/27/17 10:15 11/26/17 10:14 Dutasteride (Avodart) 0.5 mg DAILY PO 10/28/17 09:00 11/27/17 08:59 10/28/17 07:41 0.5 MG Physical Exam Vital Signs Past 12 Hours Date Time Temp Pulse Resp B/P (MAP) Pulse Ox O2 Delivery O2 Flow Rate FiO2 10/28/17 09:39 128 100/62 10/28/17 08:06 162 130/70 10/28/17 08:00 Room Air 10/28/17 07:55 37.2 91 16 130/75 (93) 91 Room Air 10/28/17 04:00 Room Air 10/28/17 03:13 36.8 111 18 99/66 (77) 92 Room Air 10/28/17 00:01 Room Air 10/27/17 23:40 36.7 108 18 109/64 (79) 94 Room Air Constitutional: Alert, oriented, in no acute distress HEENT: Head is atraumatic and normocephalic. EOMs intact. Sclera anicteric. Face is symmetric. No perioral cyanosis. Mucous membranes moist. Neck: Supple, no appreciable JVD but difficult exam given thick neck, no carotid bruits Pulmonary: Normal respiratory effort, clear to auscultation bilaterally Cardiac: Distant heart sounds. Irregularly irregular, normal S1 and S2, no gallops, no rubs, no obvious murmurs Extremities: No clubbing, cyanosis, or edema. Pulses 2+ and symmetric Abdomen: Obese. Normal bowel sounds, soft, non-tender, no abdominal mass palpated Skin: Normal skin color, turgor, and pigmentation, no rash, no skin lesions Neurological: Oriented to person, place, and time Data Laboratory Results: Last 24 Hours Test 10/27/17 11:24 10/27/17 16:28 10/27/17 21:08 10/28/17 05:38 Bedside Glucose 176 mg/dl 108 mg/dl 114 mg/dl White Blood Count 34.20 K/uL Red Blood Count 3.56 M/uL Hemoglobin 10.4 g/dL Hematocrit 31.7 % Mean Corpuscular Volume 89.0 fL Mean Corpuscular Hemoglobin 29.2 pg Mean Corpuscular Hemoglobin Concent 32.8 g/dl RDW Standard Deviation 50.7 fL RDW Coefficient of Variation 15.6 % Platelet Count 198 K/uL Mean Platelet Volume 9.4 fL Sodium Level 135 mmol/L Potassium Level 4.2 mmol/L Chloride Level 108 mmol/L Carbon Dioxide Level 21 mmol/L Anion Gap 6.0 mmol/L Blood Urea Nitrogen 33 mg/dl Creatinine 1.63 mg/dl Est Creatinine Clear Calc Drug Dose 44.7 ml/min Estimated GFR () 45.4 Estimated GFR (Non- 39.2 BUN/Creatinine Ratio 20.2 Random Glucose 78 mg/dl Calcium Level 7.5 mg/dl Magnesium Level 2.0 mg/dl Test 10/28/17 06:39 Bedside Glucose 87 mg/dl CXR: 1. Mild cardiomegaly. 2. Elevation of the right hemidiaphragm with right basilar atelectasis. No other convincing evidence of acute cardiopulmonary disease. EKG 10/27/2017: Sinus tachycardia at 104 bpm. RBBB. EKG 10/28/2017: Atrial fibrillation with rapid ventricular response with premature ventricular or aberrantly conducted complexes. RBBB. Telemetry reviewed: Sinus tachycardia with runs of junctional tachycardia. At approximately 7:33 am, he developed atrial fibrillation with RVR up to the 180s. He is now averaging 120s-130s. Assessment & Plan ASSESSMENT/PLAN: 1. New onset atrial fibrillation: He is asymptomatic with the arrhythmia, but his rate is inadequately controlled. Recommend initiating metoprolol tartrate 50 mg PO TID with holding parameters. If necessary, 1 dose of IV Digoxin may also be administered. It is also recommended that his SQ Heparin be switched to a Heparin drip for thromboembolic prophylaxis. Given his elevated CHADSVASc score of at least 4 (age x2, DM, HTN), usp anticoagulation therapy is indicated. The decision as to the appropriate agent can be decided closer to discharge once his renal function has stabilized. Will also perform a transthoracic echocardiogram. 2. Hypertension: His BP is well controlled, and he has actually been relatively hypotensive at times. Since the metoprolol tartrate is being initiated for better rate control of his arrhythmia, continue to hold amlodipine and HCTZ/ Lisinopril. 3. Dyslipidemia: Continue atorvastatin as prescribed. Thank you for allowing us to see this patient in consultation. The patient was discussed with Dr. El, and the plan was made in collaboration with him.
[2017-10-28] MEDS ORDERED: HEPARIN IV BOLUS 7,000 UNIT in SYRINGE 0 ML IV ONE (12:00)
[2017-10-28] MEDS: HEPARIN 25,000 UNIT/500ML D5W 500 ML IV PRN (12:09)
[2017-10-28 12:16] LABS: PARTIAL THROMBOPLASTIN RATIO 1.1; PROTHROMBIN TIME (PATIENT) 10.8 SECONDS (9.0-12.0)
--- NOTE | 2017-10-28 12:46 | Hospitalist Progress Note ---
Hospitalist Progress Note Date of Service Oct 28, 2017. (Darcie Nye ., THOMASC) Subjective Pt evaluation today including: conversation w/ patient, physical exam, lab review, review of studies, conversation w/ marketing regional consultant (Dr. El ), review of inpatient medication list Voiding: vasquez catheter in place (draining concentrated yellow urine ) Patient resting in bed. Continue to feel improvement in symptoms. +weakness. Eating and drinking OK. Patient denies any fever, chills, sweats, lightheadedness, dizziness, vision changes, CP, palpitations, edema, SOB, wheezing, cough, abdominal pain, nausea, vomiting, diarrhea, urinary symptoms, melena, numbness/tingling, muscle/joint pain, anxiety/depression, active bleeding, or new skin discoloration/changes. (Darcie Nye, THOMASC) Medications Current Inpatient Medications Medications (Trade) Dose Ordered Sig/Ambrose Route Start Time Stop Time Status Last Admin Dose Admin Sodium Chloride 1,000 ml @ 125 mls/hr Q8H IV 10/27/17 01:30 11/26/17 01:29 10/28/17 07:43 125 MLS/HR Acetaminophen (Tylenol Tab) 650 mg Q4H PRN PO 10/27/17 00:45 11/26/17 00:44 Al Hydrox/Mg Hydrox/Simethicone (Maalox Max Susp) 15 ml Q4H PRN PO 10/27/17 00:45 11/26/17 00:44 Magnesium Hydroxide (Milk Of Magnesia Susp) 30 ml Q12H PRN PO 10/27/17 00:45 11/26/17 00:44 Ondansetron HCl (Zofran Inj) 4 mg Q6H PRN IV 10/27/17 00:45 11/26/17 00:44 Nitroglycerin (Nitrostat Tab) 0.4 mg UD PRN SL 10/27/17 00:45 11/26/17 00:44 Morphine Sulfate (MoRPHine SULFATE INJ) 2 mg Q30M PRN IV 10/27/17 00:45 11/10/17 00:44 Metoprolol Tartrate (Lopressor Iv) 5 mg Q6 PRN IV 10/27/17 00:45 11/26/17 00:44 10/28/17 08:06 5 MG Amlodipine Besylate (Norvasc Tab) 2.5 mg QAM PO 10/27/17 09:00 11/26/17 08:59 Future Hold 10/28/17 07:40 2.5 MG Aspirin (Ecotrin Tab) 81 mg HS PO 10/27/17 21:00 11/26/17 20:59 10/27/17 22:06 81 MG Atorvastatin Calcium (Lipitor Tab) 20 mg HS PO 10/27/17 21:00 11/26/17 20:59 10/27/17 22:06 20 MG Multivitamins (Multivitamin Tab) 1 tab QAM PO 10/27/17 09:00 11/26/17 08:59 10/28/17 07:39 1 TAB Piperacillin Sod/ Tazobactam Sod 3.375 gm/Dextrose 115 ml @ 28.75 mls/ hr Q8H IV 10/27/17 06:00 11/06/17 05:59 10/28/17 05:37 28.75 MLS/HR Insulin Aspart (novoLOG ASPART) SLIDING SCALE G... ACHS SC 10/27/17 07:00 11/26/17 06:59 10/27/17 12:06 1 UNITS Piperacillin Sod/ Tazobactam Sod (Consult) 1 ea UD PRN N/A 10/27/17 02:00 11/26/17 01:59 Hydralazine HCl (HydrALAZINE INJ) 10 mg Q6H PRN IV. 10/27/17 10:15 11/26/17 10:14 Dutasteride (Avodart) 0.5 mg DAILY PO 10/28/17 09:00 11/27/17 08:59 10/28/17 07:41 0.5 MG Metoprolol Tartrate (Lopressor Tab) 50 mg TID PO 10/28/17 14:00 11/27/17 13:59 Heparin Sodium/ Dextrose 500 ml @ 31 mls/hr Q16H8M PRN IV 10/28/17 12:00 11/27/17 11:59 10/28/17 12:09 31 MLS/HR (Darcie Nye, PA-C) Objective Vital Signs Date Time Temp Pulse Resp B/P (MAP) Pulse Ox O2 Delivery O2 Flow Rate FiO2 12/15/17 12:05 Room Air 10/28/17 11:39 37.0 104 18 103/64 (77) 93 10/28/17 09:39 128 100/62 10/28/17 08:06 162 130/70 10/28/17 08:00 Room Air 10/28/17 07:55 37.2 91 16 130/75 (93) 91 Room Air 10/28/17 04:00 Room Air 10/28/17 03:13 36.8 111 18 99/66 (77) 92 Room Air 10/28/17 00:01 Room Air 10/27/17 23:40 36.7 108 18 109/64 (79) 94 Room Air 10/27/17 20:00 Room Air 10/27/17 19:31 36.8 110 20 99/59 (72) 90 Room Air 10/27/17 16:01 37.3 106 18 104/60 (75) 91 Room Air 10/27/17 16:00 Room Air (Darcie Nye, PA-C) Physical Exam General Appearance: no apparent distress Eyes: normal inspection, PERRL ENT: hearing grossly normal Neck: supple Respiratory/Chest: lungs clear, no respiratory distress, no accessory muscle use Cardiovascular: + tachycardia, + irregularly irregular Abdomen: normal bowel sounds, non tender, soft Extremities: no pedal edema, no calf tenderness Neurologic/Psychiatric: alert, normal mood/affect, oriented x 3 Skin: normal color, warm/dry, no rash (Darcie Nye, PA-C) Laboratory Results Last 24 Hours Test 10/27/17 16:28 10/27/17 21:08 10/28/17 05:38 10/28/17 06:39 Bedside Glucose 108 mg/dl 114 mg/dl 87 mg/dl White Blood Count 34.20 K/uL Red Blood Count 3.56 M/uL Hemoglobin 10.4 g/dL Hematocrit 31.7 % Mean Corpuscular Volume 89.0 fL Mean Corpuscular Hemoglobin 29.2 pg Mean Corpuscular Hemoglobin Concent 32.8 g/dl RDW Standard Deviation 50.7 fL RDW Coefficient of Variation 15.6 % Platelet Count 198 K/uL Mean Platelet Volume 9.4 fL Sodium Level 135 mmol/L Potassium Level 4.2 mmol/L Chloride Level 108 mmol/L Carbon Dioxide Level 21 mmol/L Anion Gap 6.0 mmol/L Blood Urea Nitrogen 33 mg/dl Creatinine 1.63 mg/dl Est Creatinine Clear Calc Drug Dose 44.7 ml/min Estimated GFR () 45.4 Estimated GFR (Non- 39.2 BUN/Creatinine Ratio 20.2 Random Glucose 78 mg/dl Calcium Level 7.5 mg/dl Magnesium Level 2.0 mg/dl Test 10/28/17 11:05 10/28/17 11:55 Bedside Glucose 125 mg/dl Prothrombin Time 10.8 SECONDS Prothromb Time International Ratio 1.0 Activated Partial Thromboplast Time 29.5 SECONDS Partial Thromboplastin Ratio 1.1 (Darcie Nye ., PAAyazC) Assessment and Plan This is an 82 y/o male with a history of enlarged prostate and recurrent UTI after initiating self cath in February suffering from sepsis secondary to a urinary source Sepsis, likely secondary to UTI, h/o BPH: - Admitted to [facility] for cardiac monitoring - NSS @ 125cc/h - UCx and BCx pending - IV Zosyn - Continue Dutasteride 0.5 mg daily - Follow CBC- leukocytosis improving New onset a.fib w/ RVR: - IV Lopressor 5 mg PRN for HR >120 - Cardiology consulted, appreciate recommendations -- Start Lopressor 50 mg TID -- May use Digoxin 0.25 mg x1 dose if needed -- Start IV Heparin gtt for thromboembolic prevention- transition to PO once renal function stabilizes -- ECHO Hypomagnesium at 1.3- RESOLVED: Replace w/ IV 1 gm Mag x2, follow mag level and replace PRN T2DM: - Metformin 500 mg BID held - BSH ACHS and ISS KYARA on CKD- unsure of baseline Cr: - Per record in 2016, Cr. 1.8; Improved from Cr. 2.42 yesterday to 1.63 today - Continue IVF - Hold HCTZ/Lisinopril - Follow PRP HTN: - Hold HCTZ/Lisinopril and Amlodipine 2.5- due to KYARA and low-normal BP w/ initiating Lopressor for HR control - Hydralazine 10 mg IV q6 hrs PRN for sbp >180 or dbp >100 HLD: Lipitor 20 mg HS DVT prophylaxis: Heparin IV Code Status: LEVEL I, FULL Dispo: Discharge uncertain at this time- PT/OT consulted (Darcei Nye ., PA-C) I agree with PA assessment and plan and have seen and examined pt myself Resting comfortably in bed Denies any complaints at this time Noted to go into afib this AM, asymptomatic, likely from sepsis Cardiology consulted, agree with BB at this time and using heparin drip Cont antibx for sepsis likely from UTI, await urine cx Update at bedside No further concerns at this time (Oumar Del Rosario D.O.)
[2017-10-28 12:59] LABS: BASO % 0.2 %; BASO ABS # 0.06 K/uL (0-0.2); ECHINOCYTES 1+; EOS % 0.5 %; IG% 1.9 %; LYMPH % 2.7 %; LYMPH ABS # 0.96 K/uL (1.2-3.4); MONO % 3.2 %; NEUT % 91.5 %; TOXIC GRANULATION 3+; VACUOLIZATION 1+
[2017-10-28] MEDS: METOPROLOL TARTRATE 50 MG TAB PO SCH ×2 (14:38→20:40)
[2017-10-28 14:41] LABS: COMPLETE YES
--- NOTE | 2017-10-28 15:36 | ECHOCARDIOGRAM REPORT ---
*NOTICE TO RECEIVING [employer] This information is strictly Confidential and protected under [place] law. [place] law prohibits you from making any further disclosure of this information unless further disclosure is expressly permitted by the written consent of the person to whom it pertains or is authorized by law. A general authorization for the release of medical or other information is not sufficient for this purpose. Hospital accepts no responsibility if the information is made available to any other person, INCLUDING THE PATIENT. Interpretation Summary * Name: ORLANDO VELASCO Study Date: 10/28/2017 01:06 PM BP: 103/64 mmHg * Patient Location: C.2T\S\S235\S\1 HR: 106 * : 1935 (M/d/yyyy) Gender: Male Height: 73 in * Age: 82 yrs Ethnicity: [place] Weight: 217 lb * Ordering Physician: Marcela Spring * Referring Physician: No Doctor, Assigned * Performed By: Tamar Payne RDCS * * Reason For Study: afib * BSA: 2.2 m2 * -- Conclusions -- * Left ventricular systolic function is low normal. * No regional wall motion abnormalities noted. * Ejection Fraction = 50-55%. * There is borderline concentric left ventricular hypertrophy. * There is mild mitral regurgitation. * There is mild tricuspid regurgitation. Procedure Details * A complete two-dimensional transthoracic echocardiogram was performed (2D, M-mode, Doppler and color flow Doppler). Left Ventricle * The left ventricle is normal in size. * There is borderline concentric left ventricular hypertrophy. * Left ventricular systolic function is low normal. * Ejection Fraction = 50-55%. * No regional wall motion abnormalities noted. Right Ventricle * The right ventricle is grossly normal size. * The right ventricular systolic function is qualitatively normal. Atria * The left atrium is mildly dilated. * The right atrium is mildly dilated. * No ASD detected; PFO is not assessed. Mitral Valve * The mitral valve anatomy is normal. * There is no mitral valve stenosis. * There is mild mitral regurgitation. Tricuspid Valve * The tricuspid valve anatomy is normal. * There is mild tricuspid regurgitation. Aortic Valve * The aortic valve is not well visualized. * The aortic valve opens well. * No hemodynamically significant valvular aortic stenosis. * There is no significant aortic regurgitation. Pulmonic Valve * The pulmonic valve is not well visualized. Great Vessels * Borderline aortic root dilatation. * The pulmonary is not well visualized. Pericardium/Pleural * There is no pericardial effusion. Great Vessels * Dilated inferior vena cava with reduced collapsability with sniff indicates an elevated right atrial pressure of 15 mmHg MMode 2D Measurements and Calculations IVSd 0.99 cm IVSs 1.2 cm LVIDd 5.2 cm LVIDs 4.1 cm LVPWd 1.4 cm LVPWs 2.1 cm IVS/LVPW 0.68 FS 22.5 % EDV(Teich) 131.3 ml ESV(Teich) 72.4 ml EF(Teich) 44.9 % EDV(cubed) 143.2 ml ESV(cubed) 66.7 ml EF(cubed) 53.4 % % IVS thick 16.9 % % LVPW thick 43.8 % LV mass(C)d 256.3 grams LV mass(C)dI 115.1 grams/m\S\2 LV mass(C)s 267.7 grams LV mass(C)sI 120.2 grams/m\S\2 SV(Teich) 59.0 ml SI(Teich) 26.5 ml/m\S\2 SV(cubed) 76.4 ml SI(cubed) 34.3 ml/m\S\2 Ao root diam 4.0 cm Ao root area 12.7 cm\S\2 LA dimension 4.0 cm LA/Ao 1.0 LVAd ap4 40.6 cm\S\2 LVLd ap4 8.9 cm EDV(MOD-sp4) 159.3 ml EDV(sp4-el) 157.6 ml LVAs ap4 27.6 cm\S\2 LVLs ap4 8.3 cm ESV(MOD-sp4) 79.4 ml ESV(sp4-el) 77.3 ml EF(MOD-sp4) 50.2 % EF(sp4-el) 50.9 % LVAd ap2 32.8 cm\S\2 LVLd ap2 8.7 cm EDV(MOD-sp2) 109.0 ml EDV(sp2-el) 104.4 ml LVAs ap2 22.1 cm\S\2 LVLs ap2 8.0 cm ESV(MOD-sp2) 63.3 ml ESV(sp2-el) 51.9 ml EF(MOD-sp2) 41.9 % EF(sp2-el) 50.3 % LVLd %diff -1.57 % EDV(MOD-bp) 132.0 ml LVLs %diff -4.17 % ESV(MOD-bp) 70.8 ml EF(MOD-bp) 46.4 % SV(MOD-sp4) 79.9 ml SI(MOD-sp4) 35.9 ml/m\S\2 SV(MOD-sp2) 45.7 ml SI(MOD-sp2) 20.5 ml/m\S\2 SV(MOD-bp) 61.2 ml SI(MOD-bp) 27.5 ml/m\S\2 SV(sp4-el) 80.3 ml SI(sp4-el) 36.0 ml/m\S\2 SV(sp2-el) 52.5 ml SI(sp2-el) 23.6 ml/m\S\2 Doppler Measurements and Calculations Ao V2 max 99.3 cm/sec Ao max PG 3.9 mmHg Ao max PG (full) 2.3 mmHg LV V1 max PG 1.7 mmHg LV V1 max 64.5 cm/sec
[2017-10-28 18:48] LABS: PARTIAL THROMBOPLASTIN RATIO 1.8
[2017-10-28] MEDS: ATORVASTATIN 20 MG TAB PO SCH (20:40)
[2017-10-28] MEDS: ASPIRIN 81 MG ECTAB PO SCH (20:40)
[2017-10-28] MEDS ORDERED: COUGH DROP (SUGAR FREE) LOZ 24 LOZ/1 BOX ONE (23:26)
[2017-10-29] MEDS ORDERED: COUGH DROP (SUGAR FREE) LOZ 24 LOZ/1 BOX PO PRN (01:00)
[2017-10-29 03:24] VITALS: BP 153/77; PULSE 115; TEMP 37.1; O2SAT 93
[2017-10-29] MEDS ORDERED: FLUTICASONE PROPIONATE NA SPR 16 GM BTL PRN (03:45)
[2017-10-29 04:45] LABS: HEMATOCRIT 32.9 % (42-52); MEAN CELL VOLUME 87.3 fL (80-100); MEAN CORPUSCULAR HEMOGLOBIN 29.2 pg (25-34); MEAN CORPUSCULAR HGB CONC 33.4 g/dl (32-36); MEAN PLATELET VOLUME 9.4 fL (7.4-10.4); PLATELET COUNT 192 K/uL (130-400); RED BLOOD COUNT 3.77 M/uL (4.7-6.1); WHITE BLOOD COUNT 28.41 K/uL (4.8-10.8)
[2017-10-29 04:54] LABS: PARTIAL THROMBOPLASTIN RATIO 1.4
[2017-10-29 05:07] LABS: BUN/CREATININE RATIO 23.4 (10-20); CALCIUM 7.6 mg/dl (8.5-10.1); CREATININE 1.42 mg/dl (0.60-1.40); MAGNESIUM 2.1 mg/dl (1.8-2.4); POTASSIUM 3.9 mmol/L (3.5-5.1)
[2017-10-29] MEDS ORDERED: HEPARIN IV BOLUS 7,000 UNIT in SYRINGE 0 ML IV ONE (05:45)
[2017-10-29] MEDS: PIPERACILL/TAZOBAC IV 3.375 GM in DEXTROSE 5% 100ML 100 ML IV SCH ×3 (05:48→22:12)
[2017-10-29] MEDS: HEPARIN 25,000 UNIT/500ML D5W 500 ML IV PRN ×2 (05:51→18:17)
[2017-10-29] MEDS: INSULIN ASPART 100 UNITS/ML 3 ML PEN SC SCH ×4 (07:00→20:16)
--- NOTE | 2017-10-29 07:46 | DIAGNOSTIC IMAGING REPORT ---
CHEST ONE VIEW PORTABLE HISTORY: afib with rvr + cough COMPARISON: Chest 10/27/2017. FINDINGS: The heart remains mildly enlarged. Persistent elevation the right hemidiaphragm. No focal lung consolidations to suggest pneumonia. No evidence for pulmonary edema. No pleural effusions. No pneumothorax. IMPRESSION: No significant change compared to the prior study. No acute process. Electronically signed by: Lucho Strong M.D. 10/29/2017 7:45 AM Dictated Date/Time: 10/29/2017 7:44 AM
[2017-10-29] MEDS: METOPROLOL TARTRATE 50 MG TAB PO SCH ×3 (07:48→20:19)
[2017-10-29] MEDS: DUTASTERIDE 0.5MG PO SCH ×2 (07:48)
[2017-10-29] MEDS: MULTIVITAMIN TAB PO SCH (07:48)
[2017-10-29] MEDS: SODIUM CHLORIDE 0.9% 1000ML 1,000 ML IV SCH ×2 (07:49→18:01)
[2017-10-29 08:05] VITALS: BP 154/93; PULSE 109; TEMP 36.7; O2SAT 92
[2017-10-29 11:57] VITALS: BP 118/76; PULSE 101; TEMP 36.6; O2SAT 93
[2017-10-29] MEDS: BENZONATATE 100MG CAP PO SCH ×2 (12:36→20:18)
[2017-10-29] MEDS: LACTOBACILLUS ACIDOPHILUS (FLORANEX) TAB PO SCH ×2 (12:37→16:45)
[2017-10-29 13:12] LABS: PARTIAL THROMBOPLASTIN RATIO 1.9
--- NOTE | 2017-10-29 13:40 | CARDIOLOGY PROGRESS NOTE ---
DATE: 10/29/2017 TIME: 12:35 p.m. SUBJECTIVE: Mr. Shaikh denies palpitations, syncope, near syncope, chest pain, shortness of breath or bleeding such as melena, hematochezia, or hematuria. He states that he feels much better than upon presentation, but is not yet back to baseline in regards to his sepsis likely secondary to urinary tract infection. OBJECTIVE: VITAL SIGNS: Temperature 36.6 degrees, heart rate 101 beats per minute, respiratory rate 19, and blood pressure 118/76 mmHg. Blood pressure has been mostly normotensive to mildly hypertensive in the past 24 hours. Oxygen saturation 93% on room air. Weight 102.5 kg. GENERAL: No acute distracted distress. NECK: No JVD. CARDIAC EXAM: No ventricular heave. Irregularly irregular. Normal S1 and S2. There were no murmurs, rubs or gallops. LUNGS: Clear to auscultation bilaterally without wheezes, rales or rhonchi. ABDOMEN: Soft, nontender, and nondistended. Normoactive bowel sounds. No bruits noted. EXTREMITIES: No cyanosis or edema. PSYCHIATRIC: Affect appears appropriate. MEDICATIONS: Include metoprolol tartrate 75 mg p.o. t.i.d., increased from 50 mg t.i.d. this morning by the hospitalist service, heparin drip per protocol, aspirin 81 mg at bedtime, atorvastatin 20 mg at bedtime, Zosyn 3.375 grams IV q. 8 hours, and normal saline 125 mL per hour. LABORATORY DATA: White blood cell count 28.41 down from 34.2, hemoglobin 11, and platelets 192. Sodium 136, potassium 3.9, BUN 33, creatinine 1.42 down from 1.63, and magnesium 2.1. PTT 37. Telemetry personally reviewed. Atrial fibrillation with rapid ventricular response. Echocardiogram report reviewed from 10/28/2017 with a low normal LV systolic function reported with an EF of 50%-55%. No regional wall motion abnormalities. Mild MR. Mild TR. ASSESSMENT AND PLAN: 1. Atrial fibrillation with rapid ventricular response: He is completely asymptomatic in this regard. A rate control strategy has been initiated. Metoprolol tartrate increased by hospitalist service at 75 mg p.o. t.i.d. Hopefully, with improvement of his sepsis and urinary tract infection, his heart rate will continue to improve and hopefully spontaneously convert to sinus. If heart rate remains significantly elevated after a few doses of metoprolol, could consider initiating diltiazem p.o. now that his blood pressure will tolerate. He is on heparin drip for stroke risk reduction. He does have an elevated CHADS-VASc score. Long-term anticoagulation can be decided upon after he improves from his sepsis. His renal function is improving and therefore, the newer agents may provide a good options for him versus Coumadin. 2. Hypertension: Blood pressure reasonable. Metoprolol tartrate increased as above by hospitalist service. He was on amlodipine at home as well as HCTZ and lisinopril. These were held. If further heart rate control is needed, would consider diltiazem rather than restarting amlodipine at some point. 3. Sepsis with urinary tract infection: As per primary service. 4. Disposition: Cardiology will continue to follow.
[2017-10-29] MEDS ORDERED: NURSING VERBAL MED ORDER ONE ×2 (14:00→15:00)
--- NOTE | 2017-10-29 14:52 | Progress Note ---
Subjective Date of Service: Oct 29, 2017. Subjective Pt evaluation today including: conversation w/ patient, conversation w/ family , physical exam, chart review, lab review, review of studies, review of inpatient medication list Pt states feeling better Resting comfortably in bed Occasional cough that causes HR to elevate No other issues overnight Review of Systems Constitutional: No fever, No chills, No sweats, No weight loss Eyes: No worsening of vision, No eye pain, No redness, No discharge Respiratory: + cough, + sputum, No wheezing, No shortness of breath, No dyspnea on exertion Cardiac: No chest pain, No orthopnea, No PND, No edema Abdomen: No pain, No nausea, No vomiting, No diarrhea, No constipation Musculoskeletal: No joint pain, No muscle pain, No swelling, No calf pain Male : No dysuria, No urinary frequency, No incontinence, No slowing stream Neurologic: No memory loss, No paralysis, No weakness, No numbness/tingling Psychiatric: No depression symptoms, No anhedonism, No anxiety Heme: No abnormal bleeding/bruising, No clotting problems Skin: No rash, No itch Objective Vital Signs Date Time Temp Pulse Resp B/P (MAP) Pulse Ox O2 Delivery O2 Flow Rate FiO2 10/29/17 12:00 Room Air 10/29/17 11:57 36.6 101 19 118/76 (90) 93 Room Air 10/29/17 08:05 36.7 109 19 154/93 (113) 92 Room Air 10/29/17 08:00 Room Air 10/29/17 04:02 Room Air 10/29/17 03:24 37.1 115 25 153/77 (102) 93 Room Air 10/29/17 00:00 Room Air 10/28/17 23:58 37.1 106 23 126/67 (86) 91 Room Air 10/28/17 22:45 109 10/28/17 21:05 119 10/28/17 20:45 115 10/28/17 20:01 Room Air 10/28/17 19:30 135 10/28/17 19:09 37.0 118 18 144/79 (100) 93 Room Air 10/28/17 16:00 Room Air 10/28/17 15:21 37.0 86 18 122/74 (90) 92 Room Air Physical Exam General Appearance: WD/WN, no apparent distress Eyes: normal inspection, PERRL, EOMI, sclerae normal Neck: supple, no adenopathy, thyroid normal, no JVD Respiratory/Chest: chest non-tender, lungs clear, normal breath sounds, no respiratory distress Cardiovascular: regular rate, rhythm, no edema, no gallop, no JVD Abdomen: normal bowel sounds, non tender, soft, no organomegaly Extremities: normal range of motion, non-tender, normal inspection, no pedal edema Neurologic/Psychiatric: no motor/sensory deficits, alert, normal mood/affect, oriented x 3 Skin: normal color, warm/dry, no rash Lymphatic: no adenopathy Laboratory Results Last 24 Hours Test 10/28/17 15:58 10/28/17 18:12 10/28/17 20:22 10/29/17 04:33 Bedside Glucose 105 mg/dl 129 mg/dl Activated Partial Thromboplast Time 47.6 SECONDS 37.2 SECONDS Partial Thromboplastin Ratio 1.8 1.4 White Blood Count 28.41 K/uL Red Blood Count 3.77 M/uL Hemoglobin 11.0 g/dL Hematocrit 32.9 % Mean Corpuscular Volume 87.3 fL Mean Corpuscular Hemoglobin 29.2 pg Mean Corpuscular Hemoglobin Concent 33.4 g/dl RDW Standard Deviation 50.1 fL RDW Coefficient of Variation 15.5 % Platelet Count 192 K/uL Mean Platelet Volume 9.4 fL Nucleated RBC Absolute Count (auto) 0.03 K/uL Nucleated Red Blood Cells % 0.1 % Sodium Level 136 mmol/L Potassium Level 3.9 mmol/L Chloride Level 106 mmol/L Carbon Dioxide Level 22 mmol/L Anion Gap 8.0 mmol/L Blood Urea Nitrogen 33 mg/dl Creatinine 1.42 mg/dl Est Creatinine Clear Calc Drug Dose 51.3 ml/min Estimated GFR () 53.7 Estimated GFR (Non- 46.3 BUN/Creatinine Ratio 23.4 Random Glucose 112 mg/dl Calcium Level 7.6 mg/dl Magnesium Level 2.1 mg/dl Test 10/29/17 06:39 10/29/17 11:13 10/29/17 12:22 Bedside Glucose 126 mg/dl 190 mg/dl Activated Partial Thromboplast Time 50.2 SECONDS Partial Thromboplastin Ratio 1.9 Assessment and Plan This is an 82 y/o male with a history of enlarged prostate and recurrent UTI after initiating self cath in February suffering from sepsis secondary to a urinary source Sepsis, likely secondary to UTI, h/o BPH, IMPROVING - Admitted to tele for cardiac monitoring - NSS @ 125cc/h - UCx and BCx NGTD - IV Zosyn day# 3 - Continue Dutasteride 0.5 mg daily - Holding norvasc due to episodes of hypotension New onset a.fib w/ RVR: - IV Lopressor 5 mg PRN for HR >120 - Cardiology consulted, appreciate recommendations -- Start Lopressor 50 mg TID, increased to 75 mg PO TID, will likely improve once sepsis resolves -- May use Digoxin 0.25 mg x1 dose if needed -- Start IV Heparin gtt for thromboembolic prevention- transition to PO once renal function stabilizes, would benefit from NOAC -- ECHO pending Hypomagnesium at 1.3- RESOLVED: Replace w/ IV 1 gm Mag x2, follow mag level and replace PRN T2DM: - Metformin 500 mg BID held - BSH ACHS and ISS KYARA on ?CKD- unsure of baseline Cr: - Improving at this time - Continue IVF - Hold HCTZ/Lisinopril - Follow PRP HTN: - Hold HCTZ/Lisinopril and Amlodipine 2.5- due to KYARA and low-normal BP w/ initiating Lopressor for HR control - Hydralazine 10 mg IV q6 hrs PRN for sbp >180 or dbp >100 HLD: Lipitor 20 mg HS DVT prophylaxis: Heparin IV Code Status: LEVEL I, FULL Continued [facility] stay due to: abnormal vital signs, multiple IV medications needed Discharge planning: uncertain
[2017-10-29 15:58] VITALS: BP 147/72; PULSE 84; TEMP 36.9; O2SAT 94
[2017-10-29 19:38] VITALS: BP 124/72; PULSE 101; TEMP 36.7; O2SAT 92
[2017-10-29] MEDS: ATORVASTATIN 20 MG TAB PO SCH (20:18)
[2017-10-29] MEDS: ASPIRIN 81 MG ECTAB PO SCH (20:18)
[2017-10-29 23:35] VITALS: BP_SYST 104; BP_SYST 106; BP_DIAS 63; BP_DIAS 65; PULSE 101; PULSE 63; TEMP 36.4; TEMP 36.9; O2SAT 94; O2SAT 99
[2017-10-30 04:56] VITALS: BP 130/76; PULSE 71; TEMP 37.3; O2SAT 91
[2017-10-30] MEDS: PIPERACILL/TAZOBAC IV 3.375 GM in DEXTROSE 5% 100ML 100 ML IV SCH ×3 (06:06→22:15)
[2017-10-30 06:23] LABS: HEMATOCRIT 31.3 % (42-52); MEAN CELL VOLUME 87.4 fL (80-100); MEAN CORPUSCULAR HEMOGLOBIN 29.1 pg (25-34); MEAN CORPUSCULAR HGB CONC 33.2 g/dl (32-36); MEAN PLATELET VOLUME 9.5 fL (7.4-10.4); PLATELET COUNT 192 K/uL (130-400); RED BLOOD COUNT 3.58 M/uL (4.7-6.1); WHITE BLOOD COUNT 18.57 K/uL (4.8-10.8)
[2017-10-30 06:34] LABS: PARTIAL THROMBOPLASTIN RATIO 1.7
[2017-10-30 07:00] LABS: BUN/CREATININE RATIO 21.9 (10-20); CALCIUM 7.9 mg/dl (8.5-10.1); CREATININE 1.16 mg/dl (0.60-1.40); POTASSIUM 3.6 mmol/L (3.5-5.1)
[2017-10-30] MEDS: INSULIN ASPART 100 UNITS/ML 3 ML PEN SC SCH ×4 (07:00→21:00)
[2017-10-30 07:06] VITALS: BP 137/81; PULSE 104; TEMP 36.6; O2SAT 92
[2017-10-30] MEDS ORDERED: HEPARIN IV BOLUS 3,000 UNIT in SYRINGE 0 ML IV ONE ×2 (07:30→15:00)
[2017-10-30] MEDS: DUTASTERIDE 0.5MG PO SCH ×2 (07:48)
[2017-10-30] MEDS: MULTIVITAMIN TAB PO SCH (07:49)
[2017-10-30] MEDS: LACTOBACILLUS ACIDOPHILUS (FLORANEX) TAB PO SCH ×3 (07:49→16:56)
[2017-10-30] MEDS: BENZONATATE 100MG CAP PO SCH ×3 (07:50→21:09)
[2017-10-30] MEDS: METOPROLOL TARTRATE 50 MG TAB PO SCH ×3 (07:50→21:07)
[2017-10-30] MEDS: HEPARIN 25,000 UNIT/500ML D5W 500 ML IV PRN ×2 (08:00→15:27)
--- NOTE | 2017-10-30 10:48 | CARDIOLOGY PROGRESS NOTE ---
DATE: 10/30/2017 TIME: 09:44 a.m. SUBJECTIVE: He states that he is feeling better each day. Denies chest pain, shortness of breath, syncope, near syncope, or palpitations. Denies any edema. He has not noted any bleeding. OBJECTIVE: VITAL SIGNS: Temperature 36.6 degrees, heart rate 104 beats per minute, but was much high earlier today while eating with reports in the above 140 beats per minute, respiratory rate 20, blood pressure 137/81 mmHg, and oxygen saturation is 92% on room air. I's and O's positive 2.2 liters yesterday. Weight is 103.9 kg. GENERAL: No acute distress. He is alert. NECK: No appreciable JVD. CARDIAC EXAM: No ventricular heave. Irregularly irregular and there were no audible murmurs, rubs or gallops. LUNGS: Clear to auscultation bilaterally without wheezes, rales or rhonchi. ABDOMEN: Soft, nontender, and nondistended. Normoactive bowel sounds. EXTREMITIES: No cyanosis or edema. PSYCHIATRIC: Affect appears appropriate. MEDICATIONS: Include aspirin 81 mg daily; atorvastatin 20 mg at bedtime; heparin drip per protocol; metoprolol tartrate 5 mg IV q. 6 hours p.r.n., last dose on 10/28/2017; metoprolol tartrate 75 mg p.o. t.i.d. and Zosyn IV. Telemetry personally reviewed. Atrial fibrillation. LABORATORY DATA: White blood cell count is 18.57 down from 28.41, hemoglobin 10.4, and platelets 192. Sodium 137, potassium 3.6, BUN 25, creatinine 1.16 down from 1.42. Magnesium 2. PTT 43.6. Chart reviewed. ASSESSMENT AND PLAN: 1. Atrial fibrillation with rapid ventricular response: He is asymptomatic. His rate is still not adequately controlled. Blood pressure has improved from his sepsis. Therefore, diltiazem 30 mg p.o. q. 6 hours will be initiated. This can be titrated upward for adequate heart rate control. Hopefully, he spontaneously converts. Continue anticoagulation for stroke risk reduction. Long-term anticoagulation can be decided upon prior to discharge. His renal function has improved significantly. 2. Hypertension: Blood pressure is improved. He was ____ earlier this hospitalization. Diltiazem is being initiated for further heart rate control and can replace Norvasc upon discharge. 3. Sepsis with urinary tract infection: As per primary service. 4. Disposition: Dr. El will resume his cardiology care tomorrow.
[2017-10-30] MEDS: DILTIAZEM HCL 30 MG TAB PO SCH ×3 (11:13→22:16)
[2017-10-30 11:30] VITALS: BP 121/73; PULSE 105; TEMP 36.9; O2SAT 91
[2017-10-30] MEDS ORDERED: FUROSEMIDE INJ 20 MG in SYRINGE 0 ML IV ONE (14:00)
--- NOTE | 2017-10-30 14:19 | Hospitalist Progress Note ---
Hospitalist Progress Note Date of Service Oct 30, 2017. Subjective Pt evaluation today including: conversation w/ patient Voiding: vasquez catheter in place Pt still feeling fatigued, but much better than when he was admitted. [employer]ter improved. RN noted wheezing and crackles today, IVFs stopped. All Other Systems: Reviewed and Negative Objective Vital Signs Date Time Temp Pulse Resp B/P (MAP) Pulse Ox O2 Delivery O2 Flow Rate FiO2 10/30/17 12:00 Room Air 10/30/17 11:30 36.9 105 20 121/73 (89) 91 Room Air 10/30/17 08:00 Room Air 10/30/17 07:06 36.6 104 20 137/81 (99) 92 Room Air 10/30/17 04:56 37.3 71 18 130/76 (94) 91 Room Air 10/30/17 04:02 Room Air 10/30/17 00:01 Room Air 10/29/17 23:35 36.9 101 19 106/65 (79) 99 Room Air 10/29/17 20:04 Room Air 10/29/17 19:38 36.7 101 20 124/72 (89) 92 Room Air 10/29/17 16:00 Room Air 10/29/17 15:58 36.9 84 22 147/72 (97) 94 Room Air Physical Exam General Appearance: WD/WN, no apparent distress Eyes: normal inspection, sclerae normal ENT: hearing grossly normal Neck: trachea midline Respiratory/Chest: no respiratory distress, no accessory muscle use, + crackles (bibasilar), + wheezing (scattered, more in middle to lower lung morrison bilat) Cardiovascular: + irregularly irregular (with normal rate) Abdomen: normal bowel sounds, non tender, soft Extremities: normal inspection, no pedal edema, no calf tenderness Neurologic/Psychiatric: alert, normal mood/affect, oriented x 3 Skin: normal color, warm/dry, no rash Laboratory Results Last 24 Hours Test 10/29/17 16:12 10/29/17 20:08 10/30/17 05:29 10/30/17 06:43 Bedside Glucose 119 mg/dl 149 mg/dl 120 mg/dl White Blood Count 18.57 K/uL Red Blood Count 3.58 M/uL Hemoglobin 10.4 g/dL Hematocrit 31.3 % Mean Corpuscular Volume 87.4 fL Mean Corpuscular Hemoglobin 29.1 pg Mean Corpuscular Hemoglobin Concent 33.2 g/dl RDW Standard Deviation 50.8 fL RDW Coefficient of Variation 15.6 % Platelet Count 192 K/uL Mean Platelet Volume 9.5 fL Nucleated RBC Absolute Count (auto) 0.02 K/uL Nucleated Red Blood Cells % 0.1 % Activated Partial Thromboplast Time 43.6 SECONDS Partial Thromboplastin Ratio 1.7 Sodium Level 137 mmol/L Potassium Level 3.6 mmol/L Chloride Level 107 mmol/L Carbon Dioxide Level 22 mmol/L Anion Gap 8.0 mmol/L Blood Urea Nitrogen 25 mg/dl Creatinine 1.16 mg/dl Est Creatinine Clear Calc Drug Dose 64.3 ml/min Estimated GFR () 68.6 Estimated GFR (Non- 59.1 BUN/Creatinine Ratio 21.9 Random Glucose 114 mg/dl Calcium Level 7.9 mg/dl Magnesium Level 2.0 mg/dl Test 10/30/17 11:07 Bedside Glucose 125 mg/dl Assessment and Plan This is an 82 y/o male with a history of enlarged prostate and recurrent UTI after initiating self cath in February, who presents with sepsis secondary and urinary source/UTI, also with new onset A-fib with RVR Sepsis, UTI, h/o BPH and CIC-continues to improve. WBC count down from 40 to 18k. BCxs NGTD, Ur cx no growth but taken after received abx at outside hospital. Lactate 8 at outside hospital, then down to 2.5 here. PCT significantly elevated on admission indicating severe sepsis - Admitted to [facility] for cardiac monitoring -dc IVFs due to vlume overload - UCx and BCx NGTD - continue IV Zosyn day# 4 - Continue Dutasteride 0.5 mg daily - needs close Urology f/u as outpt after discharge-has established with Urology from [facility] that comes to [place] -not on Flomax--> consider starting here New onset a.fib w/ RVR/Demand ischemia: asymptomatic. Rates still not optimal, low 100s to 160 with eating in AM. ECHO with Low normal EF 50-55%, mild MR, mild TR. 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, now improved to 1.6 after IVF resuscitation -continues to improve - Holding HCTZ/Lisinopril - Follow PRP -fluid overloaded now with crackles, wheezing, +4.4L, mild hypoxia--> give lasix 20mg IV x 1 now and watch PRP HTN: - Hold HCTZ/Lisinopril and Amlodipine 2.5- due to KYARA and low-normal BP w/ initiating Lopressor for HR control -permanently dc amlodipine due to starting diltiazem -started diltiazem 30mg po q6h -continue metoprolol 75 tid - Hydralazine 10 mg IV q6 hrs PRN for sbp >180 or dbp >100 HLD:stable -cont Lipitor 20 mg HS DVT prophylaxis: Heparin IV Code Status: LEVEL I, FULL Dispo- likely to SNF vs home when improved
[2017-10-30 14:41] LABS: PARTIAL THROMBOPLASTIN RATIO 1.7
[2017-10-30 15:29] VITALS: BP 162/88; PULSE 99; TEMP 36.7; O2SAT 94
[2017-10-30 19:58] VITALS: BP 147/80; PULSE 104; TEMP 37.1; O2SAT 94
[2017-10-30] MEDS: APIXABAN 2.5 MG TAB PO SCH (21:08)
[2017-10-30] MEDS: ATORVASTATIN 20 MG TAB PO SCH (21:09)
[2017-10-30] MEDS: ASPIRIN 81 MG ECTAB PO SCH (21:09)
[2017-10-30 23:59] VITALS: BP 112/64; PULSE 79; TEMP 37.1; O2SAT 93
[2017-10-31] VITALS (8 sets, daily range): BP systolic 120–156; BP diastolic 60–79; PULSE 82–98; TEMP 36.6–36.8; O2SAT 90–95
[2017-10-31] MEDS: DILTIAZEM HCL 30 MG TAB PO SCH ×4 (03:50→21:54)
[2017-10-31] MEDS: PIPERACILL/TAZOBAC IV 3.375 GM in DEXTROSE 5% 100ML 100 ML IV SCH ×3 (06:04→21:54)
[2017-10-31 06:06] LABS: HEMATOCRIT 32.1 % (42-52); MEAN CELL VOLUME 87.2 fL (80-100); MEAN CORPUSCULAR HEMOGLOBIN 28.8 pg (25-34); MEAN PLATELET VOLUME 9.3 fL (7.4-10.4); PLATELET COUNT 198 K/uL (130-400); RED BLOOD COUNT 3.68 M/uL (4.7-6.1); WHITE BLOOD COUNT 17.68 K/uL (4.8-10.8)
[2017-10-31 06:38] LABS: BUN/CREATININE RATIO 17.5 (10-20); CALCIUM 8.3 mg/dl (8.5-10.1); CREATININE 1.19 mg/dl (0.60-1.40); MAGNESIUM 1.8 mg/dl (1.8-2.4); POTASSIUM 3.6 mmol/L (3.5-5.1)
[2017-10-31] MEDS: INSULIN ASPART 100 UNITS/ML 3 ML PEN SC SCH ×4 (07:00→20:41)
[2017-10-31 07:10] LABS: ESTIMATED AVERAGE GLUCOSE 148 mg/dl; HA1C FLAG Normal (Normal)
[2017-10-31 07:38] LABS: BASO % 1.1 %; BASO ABS # 0.19 K/uL (0-0.2); COMPLETE YES; EOS % 1.6 %; IG% 7.6 %; LYMPH % 8.8 %; LYMPH ABS # 1.55 K/uL (1.2-3.4); MONO % 6.2 %; NEUT % 74.7 %; POIKILOCYTOSIS PRESENT
[2017-10-31] MEDS: MULTIVITAMIN TAB PO SCH (07:49)
[2017-10-31] MEDS: BENZONATATE 100MG CAP PO SCH ×3 (07:49→20:44)
[2017-10-31] MEDS: APIXABAN 2.5 MG TAB PO SCH ×2 (07:49→20:44)
[2017-10-31] MEDS: DUTASTERIDE 0.5MG PO SCH ×2 (07:50)
[2017-10-31] MEDS: METOPROLOL TARTRATE 50 MG TAB PO SCH ×3 (07:50→20:43)
[2017-10-31] MEDS: LACTOBACILLUS ACIDOPHILUS (FLORANEX) TAB PO SCH ×3 (07:50→16:35)
[2017-10-31] MEDS ORDERED: POTASSIUM CHLORIDE 10 MEQ TABCR PO STA (09:06)
--- NOTE | 2017-10-31 09:13 | PROGRESS NOTE ---
DATE: 10/31/2017 SUBJECTIVE: Denies chest pain, shortness of breath, syncope, near syncope, palpitations or edema. He denies any bleeding. We did discuss anticoagulants today. He is interested in one of the newer agents rather than Coumadin upon discharge. He has not ambulated in the hallway yet. OBJECTIVE: VITAL SIGNS: Temperature 36.8 degrees, heart rate 87 beats per minute, respiration rate 20, blood pressure 120/60 mmHg. Blood pressure has been normotensive or mildly hypertensive in the last 24 hours, oxygen saturation is 90-94% on room air this morning. I's and O's negative 1.9 liters yesterday. Weight is 101.4 kg. GENERAL: No acute distress. He is alert. NECK: No appreciable JVD but thick neck. CARDIAC EXAM: No ventricular heave, irregularly irregular, normal S1 and S2. There were no murmurs, rubs or gallops. LUNGS: Mild expiratory wheezing bilaterally. ABDOMEN: Soft, nontender, nondistended, normoactive bowel sounds, no bruits. EXTREMITIES: No cyanosis or edema. PSYCHIATRIC: Affect appears appropriate. MEDICATIONS: Aspirin 81 mg daily, Eliquis 5 mg p.o. b.i.d., diltiazem 30 mg p.o. q. 6 hours, metoprolol tartrate 75 mg p.o. t.i.d., Zosyn IV. Telemetry personally reviewed. Heart rate overall has improved but he still became tachycardic this morning while lying in bed awake. Rhythm remains atrial fibrillation. LABS: White blood cell count is 7.68, hemoglobin 10.6, platelets 198. Sodium 137, potassium 3.6, BUN 21, creatinine 1.19, magnesium 1.8. ASSESSMENT AND PLAN: 1. Atrial fibrillation with rapid ventricular response: He is asymptomatic. Heart rate is improving after initiating diltiazem. Will increase diltiazem 60 mg p.o. q. 6 hours. On discharge this can be converted to long acting diltiazem. If at some point adequate heart rate control cannot be attained, could consider transesophageal echo and cardioversion but for now, continue heart rate control strategy. Hopefully he spontaneously converts. He is now on Eliquis for anticoagulation for stroke risk reduction 2. Hypertension: Blood pressure overall is mostly normotensive, but with some mild, hypertension. This will likely further improve with titration of diltiazem as above. 3. Sepsis with urinary tract infection: As per primary service. 4. Disposition: Dr. El is away today, but will return tomorrow to resume his cardiology care if he remains hospitalized.
[2017-10-31] MEDS ORDERED: MAGNESIUM SULFATE 1GM / D5W 1 GM in PREMIXED IN D5W 100 ML IV SCH (09:30)
[2017-10-31] MEDS ORDERED: LEVALBUTEROL 0.63MG/3 ML NEB INH PRN (14:30)
--- NOTE | 2017-10-31 20:37 | Hospitalist Progress Note ---
Hospitalist Progress Note Date of Service Oct 31, 2017. Subjective Pt evaluation today including: conversation w/ patient Voiding: vasquez catheter in place Patient reports still having some postnasal drip from a recent URI, but was able to sleep for a few hours last night. Still coughing. His heart rates are still elevated today and cardiology increased his diltiazem dose. Remains afebrile All Other Systems: Reviewed and Negative Objective Vital Signs Date Time Temp Pulse Resp B/P (MAP) Pulse Ox O2 Delivery O2 Flow Rate FiO2 10/31/17 19:35 36.7 89 20 156/78 (104) 91 Room Air 10/31/17 15:52 Room Air 10/31/17 15:36 36.7 82 20 122/76 (91) 92 Room Air 10/31/17 14:53 84 18 95 Room Air 10/31/17 12:00 Room Air 10/31/17 10:37 36.8 98 19 131/77 (95) 93 Room Air 10/31/17 08:03 36.8 87 20 120/60 (80) 90 Room Air 10/31/17 08:00 Room Air 10/31/17 07:54 147/68 (94) 10/31/17 04:00 Room Air 10/31/17 03:47 36.8 90 16 134/79 (97) 94 Room Air 10/31/17 00:02 Room Air 10/30/17 23:59 37.1 79 18 112/64 (80) 93 Room Air Physical Exam General Appearance: WD/WN, no apparent distress Eyes: normal inspection, sclerae normal ENT: hearing grossly normal Neck: trachea midline Respiratory/Chest: no respiratory distress, no accessory muscle use, + crackles (mild at the bases but improved from yesterday), + wheezing (still with some expiratory wheezing in the middle and upper lung morrison bilaterally) Cardiovascular: no edema, no murmur, + irregularly irregular (with normal rate) Abdomen: normal bowel sounds, non tender, soft, + pertinent finding (Vasquez catheter in place draining clear yellow urine) Extremities: normal inspection, no pedal edema, no calf tenderness Neurologic/Psychiatric: alert, normal mood/affect, oriented x 3 Skin: normal color, warm/dry, no rash Laboratory Results Last 24 Hours Test 10/31/17 05:50 10/31/17 06:37 10/31/17 11:07 10/31/17 16:31 White Blood Count 17.68 K/uL Red Blood Count 3.68 M/uL Hemoglobin 10.6 g/dL Hematocrit 32.1 % Mean Corpuscular Volume 87.2 fL Mean Corpuscular Hemoglobin 28.8 pg Mean Corpuscular Hemoglobin Concent 33.0 g/dl Platelet Count 198 K/uL Mean Platelet Volume 9.3 fL Neutrophils (%) (Auto) 74.7 % Lymphocytes (%) (Auto) 8.8 % Monocytes (%) (Auto) 6.2 % Eosinophils (%) (Auto) 1.6 % Basophils (%) (Auto) 1.1 % Neutrophils # (Auto) 13.23 K/uL Lymphocytes # (Auto) 1.55 K/uL Monocytes # (Auto) 1.09 K/uL Eosinophils # (Auto) 0.28 K/uL Basophils # (Auto) 0.19 K/uL RDW Standard Deviation 50.0 fL RDW Coefficient of Variation 15.6 % Immature Granulocyte % (Auto) 7.6 % Immature Granulocyte # (Auto) 1.34 K/uL Poikilocytosis PRESENT Activated Partial Thromboplast Time 25.7 SECONDS Partial Thromboplastin Ratio 1.0 Sodium Level 137 mmol/L Potassium Level 3.6 mmol/L Chloride Level 106 mmol/L Carbon Dioxide Level 25 mmol/L Anion Gap 6.0 mmol/L Blood Urea Nitrogen 21 mg/dl Creatinine 1.19 mg/dl Est Creatinine Clear Calc Drug Dose 62.7 ml/min Estimated GFR () 66.5 Estimated GFR (Non- 57.3 BUN/Creatinine Ratio 17.5 Random Glucose 105 mg/dl Estimated Average Glucose 148 mg/dl Hemoglobin A1c 6.8 % Calcium Level 8.3 mg/dl Magnesium Level 1.8 mg/dl Bedside Glucose 97 mg/dl 132 mg/dl 111 mg/dl Assessment and Plan This is an 82 y/o male with a history of enlarged prostate and recurrent UTI after initiating self cath in February, who presents with sepsis secondary and urinary source/UTI, also with new onset A-fib with RVR Sepsis, UTI, h/o BPH and CIC-continues to improve. WBC count down from 40 to 17k. BCxs NGTD, Ur cx no growth but taken after received abx at outside hospital. Lactate 8 at outside hospital, then down to 2.5 here. PCT significantly elevated on admission indicating severe sepsis. - Admitted to [facility] for cardiac monitoring -dc IVFs due to volume overload on 10/30 - UCx and BCx NGTD - continue IV Zosyn day# 5-will request urine and blood culture results from [facility] for potential sensitivities. If not available, would recommend finishing out a course of Cipro for a total of 10-14 days due to severe sepsis and likely acute prostatitis - Continue Dutasteride 0.5 mg daily -He is not on Flomax for his history of BPH-we'll start tonight as blood pressures are stable on higher dose of diltiazem - needs close Urology f/u as outpt after discharge-has established with Urology from [facility] that comes to [place] -Consider leaving Vasquez catheter in upon discharge to avoid self- catheterization need at home until seen by urology-he reports numerous UTIs and hospitalizations since he started self-catheterization New onset a.fib w/ RVR/Demand ischemia: asymptomatic. Rates still not optimally controlled. ECHO with Low normal EF 50-55%, mild MR, mild TR. 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, now improved to 1.19 after IVF resuscitation - Holding HCTZ/Lisinopril and can likely be restarted upon discharge - Follow PRP -fluid overloaded from IV fluid resuscitation-given lasix 20mg IV x 1 on 10/30 and had some improvement HTN: BP is somewhat elevated at times - Holding HCTZ/Lisinopril and discontinued Amlodipine 2.5 -permanently dc amlodipine due to starting diltiazem -Continue diltiazem 60mg po q6h and convert to long-acting upon discharge -continue metoprolol 75 tid and can transition to long-acting upon discharge - Hydralazine 10 mg IV q6 hrs PRN for sbp >180 or dbp >100 HLD:stable -cont Lipitor 20 mg HS DVT prophylaxis: Eliquis Code Status: LEVEL I, FULL Dispo- likely to home in 1-2 days if rates of A. fib controlled
[2017-10-31] MEDS: ASPIRIN 81 MG ECTAB PO SCH (20:43)
[2017-10-31] MEDS: ATORVASTATIN 20 MG TAB PO SCH (20:43)
[2017-10-31] MEDS ORDERED: TAMSULOSIN HCL 0.4 MG CAP PO SCH (21:00)
[2017-11-01] MEDS: DILTIAZEM HCL 30 MG TAB PO SCH (03:37)
[2017-11-01 03:38] VITALS: BP 144/71; PULSE 87; TEMP 36.7; O2SAT 92
[2017-11-01] MEDS: PIPERACILL/TAZOBAC IV 3.375 GM in DEXTROSE 5% 100ML 100 ML IV SCH ×2 (06:10→13:38)
[2017-11-01 06:48] LABS: HEMATOCRIT 31.7 % (42-52); MEAN CELL VOLUME 87.1 fL (80-100); MEAN CORPUSCULAR HEMOGLOBIN 28.8 pg (25-34); MEAN CORPUSCULAR HGB CONC 33.1 g/dl (32-36); MEAN PLATELET VOLUME 9.1 fL (7.4-10.4); PLATELET COUNT 222 K/uL (130-400); RED BLOOD COUNT 3.64 M/uL (4.7-6.1)
[2017-11-01] MEDS: INSULIN ASPART 100 UNITS/ML 3 ML PEN SC SCH ×2 (07:00→11:00)
[2017-11-01 07:24] LABS: BUN/CREATININE RATIO 18.6 (10-20); CALCIUM 8.2 mg/dl (8.5-10.1); CREATININE 1.01 mg/dl (0.60-1.40); MAGNESIUM 1.7 mg/dl (1.8-2.4); POTASSIUM 3.5 mmol/L (3.5-5.1)
[2017-11-01] MEDS: APIXABAN 2.5 MG TAB PO SCH (08:08)
[2017-11-01] MEDS: LACTOBACILLUS ACIDOPHILUS (FLORANEX) TAB PO SCH ×2 (08:08→11:02)
[2017-11-01] MEDS: BENZONATATE 100MG CAP PO SCH ×2 (08:08→13:39)
[2017-11-01] MEDS: DUTASTERIDE 0.5MG PO SCH ×2 (08:08)
[2017-11-01] MEDS: MULTIVITAMIN TAB PO SCH (08:09)
[2017-11-01] MEDS: METOPROLOL TARTRATE 50 MG TAB PO SCH ×2 (08:09→13:39)
[2017-11-01 08:12] VITALS: BP 111/55; PULSE 99; TEMP 36.9; O2SAT 98
[2017-11-01] MEDS ORDERED: DILTIAZEM HCL 180 MG ER CAP PO SCH (09:00)
--- NOTE | 2017-11-01 09:56 | CARDIOLOGY PROGRESS NOTE ---
DATE: 11/01/2017 DATE: 11/01/2017 SUBJECTIVE: Mr. Shaikh is resting comfortably in bed without complaints of chest pain, dyspnea, or palpitations. He is anxious for hospital discharge. OBJECTIVE: VITAL SIGNS: Blood pressure is 110/55 with an irregular pulse of 90. Respiratory rate is 18 and the patient is afebrile at 36.9 degrees Celsius. Saturations 90% on room air. NECK: Supple with full carotid upstrokes. There are no carotid bruits. Jugular venous pressure is flat at 90 degrees. There is no thyromegaly. CARDIOVASCULAR EXAMINATION: Reveals irregular, irregular rhythm with distant heart sounds. LUNGS: Clear without rales, rhonchi, or wheezes. ABDOMEN: Soft without bruits. EXTREMITIES: Reveal intact radial artery pulses bilaterally. There is no peripheral edema. LABORATORY DATA: CBC notes hemoglobin of 10.5, hematocrit 31.7, white count 5.7, platelet count 222,000. Electrolytes note a sodium of 136, potassium 3.5, chloride 105, bicarbonate 26, BUN 19, creatinine 1.01, glucose 110. ware server notes atrial fibrillation with a controlled ventricular response. IMPRESSION AND PLAN: 1. Atrial fibrillation -- heart rate now better controlled with the addition of diltiazem to his metoprolol. He is tolerating Eliquis without difficulty. 2. Hypertension -- adequately controlled. 3. Hypercholesterolemia -- continue atorvastatin. 4. Urosepsis - at the time of presentation.
[2017-11-01 11:12] VITALS: BP 114/70; PULSE 88; TEMP 36.9; O2SAT 91
[2017-11-01] MEDS ORDERED: METO50TA16 PO (13:25)
[2017-11-01] MEDS ORDERED: ELQ25 PO (13:25)
[2017-11-01] MEDS ORDERED: BENZ100C7 PO (13:25)
[2017-11-01] MEDS ORDERED: DILT240C9 PO (13:25)
[2017-11-01] MEDS ORDERED: CIPR-255 PO (13:25)
[2017-11-01] MEDS ORDERED: FLM4 PO (13:25)
--- NOTE | 2017-11-01 13:31 | Discharge Instructions ---
Discharge Instructions Date of Service Nov 01, 2017. Admission Reason for Admission: Urosepsis Discharge Discharge Diagnosis / Problem: Sepsis, UTI, bacteremia Discharge Goals Goal(s): Decrease discomfort, Improve function, Increase independence, Improve disease control, Diagnostic testing, Therapeutic intervention Activity Recommendations Activity Limitations: resume your previous activity Exercise/Sports Limitations: as tolerated . Instructions / Follow-Up Instructions / Follow-Up Patient to be discharged home Admitted with sepsis Records from [facility] as well as Dr Tobin office indicate patient had urinary tract infection in addition to bacteremia (bacteria in the blood) Patient will be placed on antibiotic cipro 500 mg tablet twice a day for 10 more days (Can resume trimethoprim after this course is finished) Please note also addition of eliquis 5 mg tablet twice a day for atrial fibrillation (Can stop taking aspirin at this time) Also lopressor 75 mg tablet three times a day and tiazac 240 mg tablet once daily for elevated heart rate Finally addition of flomax 0.4 mg tablet for BPH Will need to follow up with Dr Coles in 1-2 weeks Will also need to follow up with urology in 1-2 weeks Current Hospital Diet Patient's current hospital diet: Diabetes Type 2 Diet, Low Sodium Diet (2gm Na) , AHA Diet (Heart Healthy) Discharge Diet Recommended Diet: AHA Diet (Heart Healthy), Low Sodium Diet (2gm Na), Diabetes Type 2 Diet Pending Studies Studies pending at discharge: no Laboratory Results Hemoglobin A1c Test 10/31/17 05:50 Range/Units Estimated Average Glucose 148 mg/dl Hemoglobin A1c 6.8 H 4.5-5.6 % Medical Emergencies . Who to Call and When: Medical Emergencies: If at any time you feel your situation is an emergency, please call 911 immediately. . Non-Emergent Contact Non-Emergency issues call your: Primary Care Provider Call Non-Emergent contact if: you have a fever, your pain is worsening . . "Provider Documentation" section prepared by Oumar Del Rosario. . VTE Core Measure Inpt VTE Proph given/why not?: Unfractionated heparin SQ, SCD's
[2017-11-01] MEDS ORDERED: MAGNESIUM OXIDE 400 MG TAB PO ONE (13:45)
[2017-11-01 13:47] VITALS: BP 114/70; PULSE 88; TEMP 36.9; O2SAT 91
--- NOTE | 2017-11-01 16:00 | Discharge Summary ---
Discharge Summary Date of Service Nov 01, 2017. Discharge Summary Admission Date: Oct 27, 2017 at 00:08 Discharge Date: Nov 01, 2017 Discharge Disposition: Home Principal Diagnosis: sepsis, bacteremia Immunizations: Have You Had Influenza Vaccine: Unknown History of Tetanus Vaccine?: Unknown History of Pneumococcal: Unknown History of Hepatitis B Vaccine: Unknown Consultations: cardiology Medication Reconciliation New Medications: Ciprofloxacin Hcl (Cipro) 500 Mg Tab 500 MG PO BID for 10 Days, #20 TAB Diltiazem Hcl (Tiazac 240 Mg) 240 Mg Cap 240 MG PO DAILY for 30 Days, #30 CAP Apixaban (Eliquis) 2.5 Mg Tab 5 MG PO BID for 30 Days, #60 TAB Benzonatate (Benzonatate) 100 Mg Cap 100 MG PO TID for 7 Days, #21 CAP Metoprolol Tartrate (Lopressor) (Lopressor) 50 Mg Tab 75 MG PO TID, #90 TAB Tamsulosin HCl (Tamsulosin HCl) 0.4 Mg Cap 0.4 MG PO HS, #30 CAP Continued Medications: Amlodipine (Norvasc) 2.5 Mg Tab 2.5 MG PO QAM, TAB Atorvastatin (Lipitor) 20 Mg Tab 20 MG PO HS, TAB Cranberry (Vaccinium Macrocarp (Cranberry Fruit Concentra) 12,600 Mg Cap Dutasteride (Avodart) 0.5 Mg Cap 0.5 MG PO DAILY, CAP Hctz/Lisinopril (Lisinopril/Hctz 20/25 Mg) 1 Ea Tab 1 TAB PO QAM, TAB Metformin HCl (Metformin HCl) 500 Mg Tab 500 MG PO BID Misc Natural Products (Osteo Bi-Flex Triple Stre) 1 Tab Tab 1 TAB PO BID Multivitamin (Multivitamin) Tab 1 TAB PO QAM, TAB Trimethoprim (Proloprim) 100 Mg Tab 100 MG PO, TAB Discontinued Medications: Aspirin (Aspirin 81) 81 Mg Tab 81 MG PO HS Discharge Exam Review of Systems: Constitutional: No fever, No chills, No sweats, No weakness Eyes: No worsening of vision, No eye pain, No redness, No discharge Respiratory: No cough, No sputum, No wheezing, No shortness of breath Cardiovascular: No chest pain, No orthopnea, No PND, No edema Abdomen: No pain, No nausea, No vomiting, No diarrhea Musculoskeletal: No joint pain, No muscle pain, No swelling, No calf pain Genitourinary - Male: No hematuria, No dysuria, No urinary frequency, No urinary urgency Neurologic: No memory loss, No paralysis, No weakness, No numbness/tingling Psychiatric: No depression symptoms, No anhedonism, No anxiety, No insomnia Endocrine: No fatigue, No excessive thirst Integumentary: No rash, No itch Physical Exam: General Appearance: WD/WN, no apparent distress Eyes: normal inspection, PERRL, EOMI, sclerae normal Neck: supple, no adenopathy, thyroid normal, no JVD Respiratory/Chest: chest non-tender, lungs clear, normal breath sounds, no respiratory distress Cardiovascular: regular rate, rhythm, no edema, no gallop, no JVD Abdomen / GI: normal bowel sounds, non tender, soft, no organomegaly Extremities: normal inspection, no calf tenderness, normal capillary refill , no pedal edema Neurologic/Psychiatric: no motor/sensory deficits, alert, normal mood/affect , oriented x 3 Skin: normal color, warm/dry, no rash Lymphatic: no adenopathy Hospital Course This is an 82 y/o male with a history of enlarged prostate and recurrent UTI after initiating self cath in February, who presents with sepsis secondary and urinary source/UTI, also with new onset A-fib with RVR Sepsis, UTI, h/o BPH and CIC-continues to improve. WBC count down from 40 to 17k. BCxs NGTD, Ur cx no growth but taken after received abx at outside hospital. Lactate 8 at outside hospital, then down to 2.5 here. PCT significantly elevated on admission indicating severe sepsis. - Admitted to [facility] for cardiac monitoring -dc IVFs due to volume overload on 10/30 - UCx and BCx NGTD - Completed 6 days of IV Zosyn - Obtained urine and blood culture results from Dr Coles's office/[facility] and was found to have klebsiella pneum in both urine and blood. Will DC home on cipro 500 mg PO BID x 10 more days - Continue Dutasteride 0.5 mg daily and flomax - needs close Urology f/u as outpt after discharge-has established with Urology from [facility] that comes to [place] -Consider leaving Martinez catheter in upon discharge to avoid self- catheterization need at home until seen by urology-he reports numerous UTIs and hospitalizations since he started self-catheterization New onset a.fib w/ RVR/Demand ischemia: asymptomatic. Rates still not optimally controlled. ECHO with Low normal EF 50-55%, mild MR, mild TR. Troponin mildly elevated but stable at 0.079/0.074 - Cardiology consulted, appreciate recommendations --cont Lopressor 75 mg TID -added on po diltiazem and will increase to 60 mg 4 times a day, transitioned to dilt 240 mg ER daily on DC -Was on heparin gtt--> pt desires NOAC upon dc--> switched to Eliquis 5 mg by mouth twice a day which will be $20 per month and is affordable to the patient Hypomagnesium at 1.3- RESOLVED T2DM: HgbA1C here is 6.8% which is well-controlled, noted decrease in lantus 10 units in AM and 25 units q HS - Metformin 500 mg BID held due to renal failure-can be restarted upon discharge - [facility] ACHS and ISS KYARA on ?CKD- unsure of baseline 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, now improved to 1.19 after IVF resuscitation - Holding HCTZ/Lisinopril and can likely be restarted upon discharge - Follow PRP -fluid overloaded from IV fluid resuscitation-given lasix 20mg IV x 1 on 10/30 and had some improvement HTN: BP is somewhat elevated at times - Holding HCTZ/Lisinopril and discontinued Amlodipine 2.5 -permanently dc amlodipine due to starting diltiazem -Continue diltiazem 60mg po q6h and convert to long-acting upon discharge -continue metoprolol 75 tid and can transition to long-acting upon discharge - Hydralazine 10 mg IV q6 hrs PRN for sbp >180 or dbp >100 HLD:stable -cont Lipitor 20 mg HS DVT prophylaxis: Eliquis Code Status: LEVEL I, FULL Dispo- likely to home in 1-2 days if rates of A. fib controlled Total Time Spent: Greater than 30 minutes This includes examination of the patient, discharge planning, medication reconciliation, and communication with other providers. Discharge Instructions Please refer to the electronic Patient Visit Report (Discharge Instructions) for additional information. Additional Copies To Valdo Coles M.D.
== END 2017-11-01 15:09 | disposition home or self-care (01) | DRG 872 ==
LOC: C.2T 10-27 00:08
PROVIDERS: ADMIT Hospitalist; ATTEND Family Medicine
DX: A41.89 Other specified sepsis (principal); N39.0 Urinary tract infection, site not specified; N41.0 Acute prostatitis; N17.9 Acute kidney failure, unspecified; I24.8 Other forms of acute ischemic heart disease; B96.1 Klebsiella pneumoniae [K. pneumoniae] as the cause of diseases classified elsewhere; N40.1 Benign prostatic hyperplasia with lower urinary tract symptoms; R65.20 Severe sepsis without septic shock; I48.91 Unspecified atrial fibrillation; E83.42 Hypomagnesemia; E11.9 Type 2 diabetes mellitus without complications; I12.9 Hypertensive chronic kidney disease with stage 1 through stage 4 chronic kidney disease, or unspecified chronic kidney disease; N18.3 Chronic kidney disease, stage 3 (moderate); E78.5 Hyperlipidemia, unspecified; Z87.440 Personal history of urinary (tract) infections; Z79.2 Long term (current) use of antibiotics; Z79.82 Long term (current) use of aspirin; Z79.84 Long term (current) use of oral hypoglycemic drugs; Z79.899 Other long term (current) drug therapy; Z91.041 Radiographic dye allergy status; Z82.49 Family history of ischemic heart disease and other diseases of the circulatory system